=== PATIENT | female | born 1945 | race Caucasian/White ===

== ENCOUNTER 2017-12-14 15:07 | Inpatient (IN) ==
--- NOTE | 2017-12-14 15:32 | Emergency Department Report ---
Medical Clearance HPI - General Chief complaint: Medical Clearance Stated complaint: Gen clearance Time Seen by Provider: 12/14/17 15:31 Source: patient Mode of arrival: ambulatory Limitations: no limitations - History of Present Illness HPI Narrative: Patient is a 72-year-old female dementia with behavioral disturbances. Patient' s been having aggressive towards [facility] staff and acting out. Patient was evaluated and found to be appropriate for generations was sent to the emergency department for evaluation. Patient complains of mild abdominal pain, no nausea no vomiting. MD complaint: medical clearance requested Home medications: Home Medications Medication Instructions Recorded Confirmed Acetaminophen [Pain Relief] 1,000 mg PO TID PRN 12/14/17 12/14/17 Albuterol/Ipratropium [Duoneb] 1 unit AEROSOL Q4H 12/14/17 12/14/17 Albuterol/Ipratropium [Duoneb] 1 unit AEROSOL Q4H PRN 12/14/17 12/14/17 Aspirin [Aspirin EC] 81 mg PO DAILY 12/14/17 12/14/17 Baclofen [Lioresal] 10 mg PO TID 12/14/17 12/14/17 Buspirone [Buspar] 7.5 mg PO TID 12/14/17 12/14/17 Cholecalciferol (Vitamin D3) 1,000 unit PO BID 12/14/17 12/14/17 [Vitamin D3] Duloxetine [Cymbalta] 60 mg PO HS 12/14/17 12/14/17 Fluticasone/Salmeterol 250/50 1 puff INH BID PRN 12/14/17 12/14/17 [Advair 250-50 Diskus] Furosemide [Lasix 40 mg Tab] 40 mg PO DAILY 12/14/17 12/14/17 Ibuprofen 400 mg PO Q5H PRN 12/14/17 12/14/17 Insulin Glargine,Hum.rec.anlog 42 unit SQ AM 12/14/17 12/14/17 [Lantus Solostar] Metformin [Glucophage] 500 mg PO BIDWM 12/14/17 12/14/17 Milk of Magnesia [Mom] 30 ml PO DAILY PRN 12/14/17 12/14/17 Multivitamin [One Daily] 1 each PO DAILY 12/14/17 12/14/17 Ondansetron HCl [Zofran] 4 mg PO Q4H PRN 12/14/17 12/14/17 PEG 3350 17gm PACKET [Miralax] 17 gm PO DAILY PRN 12/14/17 12/14/17 Pravastatin [Pravachol] 20 mg PO HS 12/14/17 12/14/17 Sotalol [Betapace] 40 mg PO BID 12/14/17 12/14/17 Trazodone [Desyrel] 25 mg PO HS 12/14/17 12/14/17 raNITIdine HCl [Ranitidine HCl] 75 mg PO BID 12/14/17 12/14/17 risperiDONE [Risperidone] 0.125 mg PO BID 12/14/17 12/14/17 Allergies/Adverse reactions: Allergies Allergy/AdvReac Type Severity Reaction Status Date / Time codeine Allergy Intermediate Verified 12/14/17 15:16 Review of Systems Constitutional: Denies: fever, chills, weakness Eyes: Denies: eye pain, eye discharge ENT: Denies: ear pain, throat pain, dental pain Cardiovascular: Denies: chest pain, palpitations, dyspnea on exertion Respiratory: Denies: cough, dyspnea, wheezes Gastrointestinal: Reports: abdominal pain. Denies: nausea, vomiting Genitourinary: Denies: dysuria, frequency Musculoskeletal: Denies: back pain Neurological: Denies: headache Psychiatric: Denies: anxiety, depression Endocrine: Denies: fatigue Hematological/Lymphatic: Denies: easy bleeding Allergic/Immunologic: Denies: facial swelling PFSH Patient Stated Medical History Dementia Yes Other HEENT Yes: Disease of esophagus Cardiac Arrhythmia Yes: afib, aflutter Coronary Artery Disease Yes Hypertension Yes Myocardial Infarction Yes Chronic Obstructive Pulmonary Yes Disease (COPD) Pneumonia Yes Diabetes Mellitus Type 2 Yes Osteoarthritis Yes Other Musculoskeletal Yes: cervicalgia Depression Yes Schizophrenia Yes Other Behavioral Health Yes: Dementia with behavioral distrubances - Social History Smoking status: Never smoker Substance use type: does not use Alcohol intake frequency: does not drink Physical Exam - General General appearance: alert, in no apparent distress - Eye Eye exam: Present: PERRL - ENT ENT exam: Present: normal oropharynx, mucous membranes moist, TM's normal bilaterally - Neck Neck exam: Present: full ROM, trachea midline - Chest Chest inspection: Present: symmetric chest wall rise. Absent: tenderness, rash - Respiratory Respiratory exam: Present: normal lung sounds bilaterally. Absent: respiratory distress, wheezes, stridor - Cardiovascular Cardiovascular exam: Present: regular rate, normal rhythm, normal heart sounds - Abdominal Exam Abdominal exam: Present: soft, tenderness (mild diffuse tenderness), normal bowel sounds. Absent: distention - Extremities Exam Extremities exam: Present: full ROM - Back Exam Back exam: Present: full ROM - Skin Skin exam: Present: warm, dry - Neurological Exam Neurological exam: Present: alert, oriented X3 - Psychiatric Psychiatric exam: Present: normal affect, normal mood Course Vital Signs Temperature 98.7 F 12/14/17 15:10 Pulse Rate 102 H 12/14/17 15:10 Respiratory Rate 18 12/14/17 15:10 Blood Pressure 163/104 H 12/14/17 15:10 Pulse Oximetry 86 L 12/14/17 15:10 Temperature 97.2 F 12/14/17 18:33 Pulse Rate 96 12/14/17 18:33 Respiratory Rate 18 12/14/17 18:33 Blood Pressure 163/96 H 12/14/17 18:33 Pulse Oximetry 91 12/14/17 18:33 Medical Clearance - Medical Records Attestation: I reviewed the patient's medical records. - Lab Data Attestation: I reviewed the patient's lab results. Result diagrams: 12/14/17 15:52 12/14/17 15:52 Lab Results 12/14/17 12/14/17 12/14/17 Range/Units 15:52 15:52 15:52 WBC 11.2 H (4.5-11.0) T/MM3 RBC 5.09 (4.00-5.20) M/MM3 Hgb 14.3 (12-16) GM/DL Hct 46.3 H (36-46) % MCV 91.0 (80-100) UM3 MCH 28.1 (26-34) UUG MCHC 30.9 L (31-37) GM/DL RDW Std Deviation 48.3 (36.9-50.2) FL Plt Count 273 (130-400) T/MM3 MPV 10.6 (9.4-12.4) UM3 Immature Gran % (Auto) 0.4 (0.0-0.5) % Neut % (Auto) 61.1 (33-66) % Lymph % (Auto) 27.0 (23-45) % [place]ock % (Auto) 9.0 (0-9.0) % Eos % (Auto) 2.1 (0-4) % Baso % (Auto) 0.4 (0-2) % Neut # (Auto) 6.8 (1.8-7.7) T/MM3 Lymph # (Auto) 3.0 (1-4.8) T/MM3 Gl[place]ock # (Auto) 1.0 H (0-0.8) T/MM3 Eos # (Auto) 0.2 (0-0.5) T/MM3 Baso # (Auto) 0.0 (0-0.2) T/MM3 Abs Immat Gran (auto) 0.05 H (0.00-0.03) T/MM3 Turbidity < 20 (0-20) Sodium 148 H (134-144) MEQ/L Potassium 4.0 (3.6-5) MEQ/L Chloride 98 (98-107) MEQ/L Carbon Dioxide 36 H (22-30) MEQ/L Anion Gap 14 (5-15) meq/L BUN 18.0 H (7-17) MG/DL Creatinine 0.9 (0.7-1.2) mg/dL GFR Calculation 61 BUN/Creatinine Ratio 20 (6-26) RATIO Glucose 152 H (65-110) MG/DL Calculated Osmolality 289 H (261-280) MOSM/KG Calcium 12.1 H (8.4-10.2) MG/DL Total Bilirubin 0.60 (0.20-1.30) MG/DL Icterus Index < 2 (0-7) AST 41 H (14-36) U/L ALT 36 H (1-35) U/L Alkaline Phosphatase 78 (38-126) U/L Total Protein 8.5 H (6.3-8.2) g/dL Albumin 4.8 (3.5-5.0) g/dL Globulin 3.7 H (2.4-3.6) G/DL Albumin/Globulin Ratio 1.3 (1.1-2.2) RATIO TSH 2.77 (0.47-4.68) mIU/L Specimen Hemolysis < 15 (0-25) Ur Collection Type Urine, void-cc/notcc Urine Color Yellow (YELLOW) Urine Clarity Clear Urine pH 5.0 (5.0-8.0) Ur Specific [place] 1.020 (1.015-1.025) Urine Protein 1+ A (NEGATIVE) Urine Glucose (UA) Negative (NEGATIVE) Urine Ketones Negative (NEGATIVE) Urine Occult Blood Trace-lysed (NEGATIVE) Urine Nitrate Negative (NEGATIVE) Urine Bilirubin Negative (NEGATIVE) Urine Urobilinogen 0.2 (NORMAL) EU/DL Ur Leukocyte Esterase Negative (NEGATIVE) Urine RBC None seen (0-3) /HPF Urine WBC 1-3 (0-5) /HPF Ur Squamous Epith Cells 0-5 Amorphous Sediment Few Urine Bacteria None seen (NEGATIVE) Ur Culture Indicated? Cult not indicated - Radiology Data Attestation: I reviewed the patient's radiology results. Chest x-ray: No acute cardiopulmonary findings - EKG Data EKG #1 EKG attestation: Yes: I reviewed and interpreted this EKG. EKG shows normal: sinus rhythm Rate: normal Rhythm: NSR Arcade/QRS: normal Interpretation: no acute changes Disposition Clinical Impression: generations admit Disposition: 64 To [facility] Generations Condition: Stable - Seen By: physician
--- OUTSIDE RECORDS SUMMARY | 2017-12-14 15:36 | External Medical Summary | Summary of Care ---
:1945 Author Name Fawad Parks M.D. Address Unavailable Unavailable , Care Team Providers Name Role Phone Nate Mejia M.D. Unavailable Unavailable Fawad Parks M.D. 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 KDoris Start 06-Nov-2009 Active Pravastatin Sodium 20 MG Oral Tablet TAKE ONE TABLET BY MOUTH EVERY DAY AT BEDTIME Quantity: 30 Refills: 6 Roberto Agosto, T. K. Start 27-Nov-2009 Active Metoprolol Tartrate 25 MG Oral Tablet Take One Tablet By Mouth Twice Daily Quantity: 60 Refills: 6 Roberto Agosto T. KDoris Start 06-Apr-2010 Active Acidophilus Oral Tablet Refills: 0 Fawad Parks M.D. Start 29-Sep-2016 Active Advair Diskus 250-50 MCG/DOSE Inhalation Aerosol Powder Breath Activated Refills: 0 Fawad Parks M.D. Start 29-Sep-2016 Active Baclofen 10 MG Oral Tablet Refills: 0 Fawad Parks M.D. Start 29-Sep-2016 Active BusPIRone HCl - 15 MG Oral Tablet Refills: 0 Epp M.D., [facility] Start 29-Sep-2016 Active Doxycycline Hyclate 100 MG Oral Tablet Refills: 0 Epp M.D., [facility] Start 29-Sep-2016 Active Furosemide 40 MG Oral Tablet Refills: 0 Epp M.D., [facility] Start 29-Sep-2016 Active Ipratropium-Albuterol 0.5-2.5 (3) MG/3ML Inhalation Solution Refills: 0 Epp M.D., [facility] Start 29-Sep-2016 Active Escitalopram Oxalate 20 MG Oral Tablet Refills: 0 Epp M.D., [facility] Start 29-Sep-2016 Active MetFORMIN HCl - 500 MG Oral Tablet Refills: 0 Epp M.D., [facility] Start 29-Sep-2016 Active Milk of Magnesia 400 MG/5ML Oral Suspension Refills: 0 Epp M.D., [facility] Start 29-Sep-2016 Active Mirtazapine 15 MG Oral Tablet Refills: 0 Epp M.D., [facility] Start 29-Sep-2016 Active Omeprazole 20 MG Oral Capsule Delayed Release Refills: 0 Epp M.D., [facility] Start 29-Sep-2016 Active Polyethylene Glycol Powder Refills: 0 Epp M.D., [facility] Start 29-Sep-2016 Active Pradaxa 150 MG Oral Capsule Refills: 0 Epp M.D., [facility] Start 29-Sep-2016 Active Tobramycin-Dexamethasone 0.3-0.1 % Ophthalmic Suspension Refills: 0 Epp M.D., [facility] Start 29-Sep-2016 Active Allergies and Adverse Reactions Name Dates Details Codeine Derivatives (Allergy) Status: Active Plavix TABS (Allergy) Reaction: Itching, Rash Status: Active Past Medical History Name Dates Details History of Acute myocardial infarction (410.90, I21.3) Status: Resolved History of Acute Myocardial Infarction (V12.59) Status: Resolved History of Pre-operative cardiovascular examination (V72.81, Z01.810) Status : Resolved Procedures Procedure Dates Details History of Cath Stent Placement History of Cath Stent Placement Completed: 16-Oct-2009 History of Heart Catheterization - Left Completed: 16-Oct-2009 History of Percutaneous Transluminal Coronary Completed: 16-Oct-2009 Thrombectomy Procedures not documented Immunization Name Dates Details Pneumo (Pneumovax) on: 2009 Influenza on: 2009 Family History Unknown Family Member Name Dates Details Family history of Diabetes Mellitus (V18.0) Comments: Family History Status: Active Family history of Lung Cancer (V16.1) Comments: Family History Status: Active Family history of Family History Reviewed Comments: Family History Status: Active Social History Smoking Status Name Dates Details Unknown if ever smoked Vital Signs Date Test Result Details 04-Oct-2016 15:32 Heart Rate 71 /min Status: Comments: Location: ; Weight 165 lb Status: Physical Findings 96 Status: Comments: O2 Saturation Body Mass Index Calculated 28.77 kg/m2 Status: Body Surface Area Calculated 1.79 m2 Status: 29-Sep-2016 16:02 BP Systolic 136 mm[Hg] Status: BP Diastolic 64 mm[Hg] Status: Heart Rate 84 /min Status: Comments: Location: ; Physical Findings 20 Status: Comments: Respiration Weight 165 lb Status: Body Mass Index Calculated 28.77 kg/m2 Status: Body Surface Area Calculated 1.79 m2 Status: Results Date Description Value Details Results not documented Plan of Care Name Dates Details Planned Observations Planned Goals not documented Instructions Name Dates Details Instructions not documented Encounters Appointment; Nate Mejia M.D. On 14-Nov-2015 Encounter Diagnosis: Problem not documented 13:30 Appointment; Nate Mejia M.D. On 23-Sep-2015 Encounter Diagnosis: Problem not documented 10:45 Appointment; Nate Mejia M.D. On 09-Sep-2015 Encounter Diagnosis: Problem not documented 10:45 Appointment; Nate Mejia M.D. On 11-Jul-2015 Encounter Diagnosis: Problem not documented 13:30
--- OUTSIDE RECORDS SUMMARY | 2017-12-14 15:36 | External Medical Summary | Summary of Care ---
[...] MG Oral Tablet Refills: 0 Epp M.D., [facility] Start 29-Sep-2016 Active Doxycycline Hyclate 100 MG Oral Tablet Refills: 0 Epp M.D., [facility] Start 29-Sep-2016 Active Furosemide 40 MG Oral Tablet Refills: 0 Epp M.D., [facility] Start 29-Sep-2016 Active Ipratropium-Albuterol 0.5-2.5 (3) MG/3ML Inhalation Solution Refills: 0 Epp M.D., [facility] Start 29-Sep-2016 Active Escitalopram Oxalate 20 MG Oral Tablet Refills: 0 Epp M.D., [facility] Start 29-Sep-2016 Active MetFORMIN HCl - 500 MG Oral Tablet Refills: 0 Epp M.D., [facility] Start 29-Sep-2016 Active Milk of Magnesia 400 MG/5ML Oral Suspension Refills: 0 Epp M.D., [facility] Start 29-Sep-2016 Active Mirtazapine 15 MG Oral Tablet Refills: 0 Epp M.D., [facility] Start 29-Sep-2016 Active Omeprazole 20 MG Oral Capsule Delayed Release Refills: 0 Epp M.D., [facility] Start 29-Sep-2016 Active Polyethylene Glycol Powder Refills: 0 Epp M.D., [facility] Start 29-Sep-2016 Active Pradaxa 150 MG Oral Capsule Refills: 0 Epp M.D., [facility] Start 29-Sep-2016 Active Tobramycin-Dexamethasone 0.3-0.1 % Ophthalmic Suspension Refills: 0 Epp M.D., [facility] Start 29-Sep-2016 Active Allergies and [...] Dates Details Instructions not documented Encounters Appointment; Matthew Hansen M.A.|[facility]ron[facility]orisCNerissa On 29-Sep-2016 Encounter Diagnosis: Problem not documented 21:00 Appointment; Fawad Parks M.D. On 29-Sep-2016 Encounter Diagnosis: Problem not documented 15:45 Appointment; Nate Mejia M.D. On 14-Nov-2015 Encounter Diagnosis: Problem not documented 13:30 Appointment; Nate Mejia M.D. On 23-Sep-2015 Encounter Diagnosis: Problem not documented 10:45 Appointment; Nate Mejia M.D. On 09-Sep-2015 Encounter Diagnosis: Problem not documented 10:45 Appointment; Nate Mejia M.D. On 11-Jul-2015 Encounter Diagnosis: Problem not documented 13:30"
--- OUTSIDE RECORDS SUMMARY | 2017-12-14 15:36 | External Medical Summary | Summary of Care ---
:1945 Author Name Nate Mejia M.D. Address [address] [facility] Unavailable [place], [place] [id number] Care Team Providers Name Role Phone Nate Mejia M.D. Unavailable Unavailable Letty Mohr Primary Care Provider Unavailable Kobe Camacho Referring Provider Unavailable Unavailable Unavailable Unavailable Functional Status Functional Status Health Issues Name Dates Details Functional status health issues are not documented Status: Cognitive Status Health Issues Name Dates Details Cognitive status health issues are not documented Status: Problems Name Dates Details Myalgia and myositis (729.1, M79.1) Status: Active CAD S/P percutaneous coronary angioplasty (414.01, I25.10) Status: Active Dyslipidemia (272.4, E78.5) Status: Active Hypertension (401.9, I10) Status: Active Medications Name Dates Details Aspirin EC 81 MG Oral Tablet Delayed Release take 2 tabs every day Refills: 0 Nate Mejia M.D. Started 06-Nov-2009 ActivePravastatin Sodium 20 MG Oral Tablet TAKE ONE TABLET BY MOUTH EVERY DAY AT BEDTIME Quantity: 30 Refills: 6 Nate Mejia M.D. Started 27-Nov-2009 ActiveMetoprolol Tartrate 25 MG Oral Tablet Take One Tablet By Mouth Twice Daily Quantity: 60 Refills: 6 Nate Mejia M.D. Started 06-Apr-2010 Active Allergies and Adverse Reactions Name Dates Details Codeine Derivatives Status: Active Plavix TABS Reaction: Itching, Rash Status: Active Past Medical History Name Dates Details History of Acute myocardial infarction (410.90, I21.3) Status: Resolved History of Acute Myocardial Infarction (V12.59) Status: Resolved History of Pre-operative cardiovascular examination (V72.81, Z01.810) Status : Resolved Procedures Procedure Dates Details History of Cath Stent Placement History of Cath Stent Placement Completed:16-Oct-2009 History of Heart Catheterization - Left Completed:16-Oct-2009 History of Percutaneous Transluminal Completed:16-Oct-2009 Coronary Thrombectomy ECG/ EKG ([facility]) [place]15-Oct-2015 Immunization Name Dates Details Pneumo (Pneumovax) Administered on:2009 Influenza Administered on:2009 Family History Unknown Family Member Name Dates Details Family history of Diabetes Mellitus (V18.0) Comments: Family History Status: Active Family history of Lung Cancer (V16.1) Comments: Family History Status: Active Family history of Family History Reviewed Comments: Family History Status: Active Social History Smoking StatusUnknown if ever smoked Vital Signs Date Test Result Details No Known Vitals to report Results Date Description Value Details Results not documented Plan of Care Planned Observations Name Dates Details Planned Goals not documented Goal Planned Encounters Appointment; Provider: Nate Mejia On 14-Nov-2015 13:30 Appointment; Provider: Luis Gallegos On 28-Jul-2010 08:45 Appointment; Provider: Luis Gallegos On 29-Jun-2010 10:00 Instructions Instructions not documented Encounters Appointment; Nate Mejia On 23-Sep-2015 Encounter Diagnosis: Problem not documented 10:45 Appointment; Nate Mejia On 09-Sep-2015 Encounter Diagnosis: Problem not documented 10:45 Appointment; Nate Mejia On 11-Jul-2015 Encounter Diagnosis: Problem not documented 13:30 Appointment; Nate Mejia On 21-May-2014 Encounter Diagnosis: Problem not documented 13:30
--- OUTSIDE RECORDS SUMMARY | 2017-12-14 15:36 | External Medical Summary | Summary of Care ---
:1945 Author Name Pradeep Hansen M.A., James A Address [address] [facility] Unavailable [place], [place] [id number] Care Team Providers Name Role Phone Nate Mejia M.D. Unavailable Unavailable Fawad Parks M.D. Unavailable Unavailable Pradeep Hansen M.A., Matthew Nguyễn Unavailable Unavailable Letty Mohr Unavailable Unavailable Kobe [...] Active Hypertension (401.9, I10) Status: Active Mixed hearing loss, bilateral (389.22, H90.6) Status: Active Medications Name Dates Details Aspirin EC 81 MG Oral Tablet Delayed Release take 2 tabs every day Refills: 0 Roberto Agosto T. KDoris Start 06-Nov-2009 Active Pravastatin Sodium 20 MG Oral Tablet TAKE ONE TABLET BY MOUTH EVERY DAY AT BEDTIME Quantity: 30 Refills: 6 Roberto Agosto T. KDoris Start 27-Nov-2009 Active Metoprolol Tartrate 25 MG [...] MG Oral Tablet Refills: 0 Epp M.D., Fawad Gopi Start 29-Sep-2016 Active Doxycycline Hyclate 100 MG Oral Tablet Refills: 0 Epp M.D., [facility] Start 29-Sep-2016 Active Furosemide 40 MG Oral Tablet Refills: 0 Epp M.D., [facility] Start 29-Sep-2016 Active Ipratropium-Albuterol 0.5-2.5 (3) MG/3ML Inhalation Solution Refills: 0 Epp M.D., [facility] Start 29-Sep-2016 Active Escitalopram Oxalate 20 MG Oral Tablet Refills: 0 Epp M.D., [facility] Start 29-Sep-2016 Active MetFORMIN HCl - 500 MG Oral Tablet Refills: 0 Epp M.D., Fawad Gopi Start 29-Sep-2016 Active Milk of Magnesia 400 MG/5ML Oral Suspension Refills: 0 Epp M.D., Fawad Nguyễn Start 29-Sep-2016 Active Mirtazapine 15 MG Oral Tablet Refills: 0 Epp M.D., Fawad Gopi Start 29-Sep-2016 Active Omeprazole 20 MG Oral Capsule Delayed Release Refills: 0 Epp M.D., Fawad Gopi Start 29-Sep-2016 Active Polyethylene Glycol Powder Refills: 0 Epp M.D., [facility] Start 29-Sep-2016 Active Pradaxa 150 MG Oral Capsule Refills: 0 Epp M.D., [facility] Start 29-Sep-2016 Active Tobramycin-Dexamethasone 0.3-0.1 % Ophthalmic Suspension Refills: 0 Epp M.D., [facility] Start 29-Sep-2016 Active Allergies and Adverse Reactions [...] smoked Vital Signs Date Test Result Details 29-Sep-2016 16:02 BP Systolic 136 mm[Hg] Status: Comments: Location: ; Position: BP Diastolic 64 mm[Hg] Status: Comments: Location: ; Position: Heart Rate 84 /min Status: Comments: Location: ; Physical Findings 20 Status: Comments: Respiration Weight 165 lb Status: Body Mass Index Calculated 28.77 kg/m2 Status: Body Surface Area Calculated 1.79 m2 Status: Results Date Description Value Details Results not documented Plan of Care Name Dates Details Planned Observations Planned Goals not documented Planned Encounters Appointment; Provider: Fawad Parks M.D. On 04-Oct-2016 15:15 Instructions Name Dates Details Instructions not documented Encounters Appointment; Fawad Parks M.D. On 29-Sep-2016 Encounter [...]
--- OUTSIDE RECORDS SUMMARY | 2017-12-14 15:36 | External Medical Summary | Summary of Care ---
[...] of both ears (389.22, H90.6) Status: Active Medications Name Dates Details Aspirin EC 81 MG Oral Tablet Delayed Release take 2 tabs every day Refills: 0 Roberto Agosto T. Jennifer Start 06-Nov-2009 Active Pravastatin Sodium 20 MG Oral Tablet TAKE ONE TABLET BY MOUTH EVERY DAY AT BEDTIME Quantity: 30 Refills: 6 Roberto Agosto T. KDoris Start 27-Nov-2009 Active Metoprolol Tartrate 25 MG Oral Tablet Take One Tablet By Mouth Twice Daily Quantity: 60 Refills: 6 Roberto Agosto T. Jennifer Start 06-Apr-2010 Active Acidophilus Oral Tablet Refills: 0 Kasey MFawad Rubin Start 29-Sep-2016 Active Advair Diskus 250-50 MCG/DOSE Inhalation Aerosol Powder Breath Activated Refills: 0 Fawad Parks M.D. Start 29-Sep-2016 Active Baclofen 10 MG Oral Tablet Refills: 0 Kasey M.Fawad Hannah Start 29-Sep-2016 Active BusPIRone HCl - 15 MG Oral Tablet Refills: 0 Kasey MFawad Rubin Start 29-Sep-2016 Active Doxycycline Hyclate 100 MG Oral Tablet Refills: 0 Epp M.DDoris, Fawad Gopi Start 29-Sep-2016 Active Furosemide 40 MG Oral Tablet Refills: 0 Epp M.D., Fawad Gopi Start 29-Sep-2016 Active Ipratropium-Albuterol 0.5-2.5 (3) MG/3ML Inhalation Solution Refills: 0 Epp M.D., Fawad Gopi Start 29-Sep-2016 Active Escitalopram Oxalate 20 MG Oral Tablet Refills: 0 Epp M.D., Fawad Gopi Start 29-Sep-2016 Active MetFORMIN HCl - 500 MG Oral Tablet Refills: 0 Epp M.D., [facility] Start 29-Sep-2016 Active Milk of Magnesia 400 MG/5ML Oral Suspension Refills: 0 Epp M.D., Fawad Nguyễn Start 29-Sep-2016 Active Mirtazapine 15 MG Oral Tablet Refills: 0 Epp M.D., [facility] Start 29-Sep-2016 Active Omeprazole 20 MG Oral Capsule Delayed Release Refills: 0 Epp M.D., [facility] Start 29-Sep-2016 Active Polyethylene Glycol Powder Refills: 0 Epp M.D., [facility] Start 29-Sep-2016 Active Pradaxa 150 MG Oral Capsule Refills: 0 Epp M.D., [facility] Start 29-Sep-2016 Active Tobramycin-Dexamethasone 0.3-0.1 % Ophthalmic Suspension Refills: 0 Epp M.D., [facility] Start 29-Sep-2016 Active Allergies and Adverse [...]
--- OUTSIDE RECORDS SUMMARY | 2017-12-14 15:37 | External Medical Summary | Summary of Care ---
[...] MG Oral Tablet Refills: 0 Epp M.D., [facility] Start 29-Sep-2016 Active Milk of Magnesia 400 MG/5ML Oral Suspension Refills: 0 Epp M.D., [facility] Start 29-Sep-2016 Active Mirtazapine 15 MG Oral Tablet Refills: 0 Epp M.D., [facility] Start 29-Sep-2016 Active Omeprazole 20 MG Oral Capsule Delayed Release Refills: 0 Epp M.D., [facility] Start 29-Sep-2016 Active Polyethylene Glycol Powder Refills: 0 Epp M.D., [facility] Start 29-Sep-2016 Active Pradaxa 150 MG Oral Capsule Refills: 0 Epp M.D., [facility] Start 29-Sep-2016 Active Tobramycin-Dexamethasone 0.3-0.1 % Ophthalmic Suspension Refills: 0 Epp M.D., [facility] Start 29-Sep-2016 Active Allergies and Adverse [...] Instructions not documented Encounters Appointment; Matthew Hansen M.A.|Pradeep On 29-Sep-2016 Encounter Diagnosis: Problem not documented [...]
--- OUTSIDE RECORDS SUMMARY | 2017-12-14 15:37 | External Medical Summary | CCD ---
:1945 Author Name DEBORA DANIELSON Address [address] Unavailable [place], [place] [id number] Care Team Providers Name Role Phone CONCEPCIÓN OSCAR Attending Physician Unavailable SEVERIANO SUAREZ Er Physician 1 Unavailable H.CELESTE Registered Nurse Unavailable B., KATHLEEN Archuleta Nursing Staff Unavailable W., [employer] Unavailable B., DOMONIQUE Nunez Nursing Staff Unavailable W., DEE Wheeler Registered Nurse Unavailable B., KAMILA Saldana Registered Nurse Unavailable K., KEY Wheeler Registered Nurse Unavailable J., ALFRED [facility] Unavailable M., ARELY Saldana Licensed Practical Nurse Unavailable S., JONATHAN Nunez Case Management/Cash Accountant Unavailable W., KATE Soto Nursing Staff Unavailable P., Samra RIVERS Registered Nurse Unavailable Vital Signs Vital Sign Value Unit Date/Time Recent/Initial? Weight Measured 128.8 lbs 11/05/2015 00:14 Initial VS Height 60.5 in 11/05/2015 00:14 Initial VS BMI (Body Mass Index) 24.74 kg/m^2 11/05/2015 00:14 Initial VS BSA (Body Surface 1.58 m^2 11/05/2015 00:14 Initial VS Area) BP Systolic 134 mmHg 11/05/2015 00:14 Initial VS BP Diastolic 75 mmHg 11/05/2015 00:14 Initial VS Respiratory Rate 18 bpm 11/05/2015 00:14 Initial VS Heart Rate 89 bpm 11/05/2015 00:14 Initial VS O2 % BldC Oximetry 90 % 11/05/2015 00:14 Initial VS Body Temperature 98.1 degrees 11/05/2015 00:14 Initial VS Weight Measured 141 lbs 11/08/2015 04:47 Most Recent VS Height 60.5 in 11/08/2015 04:47 Most Recent VS BMI (Body Mass Index) 27.08 kg/m^2 11/08/2015 04:47 Most Recent VS BSA (Body Surface 1.65 m^2 11/08/2015 04:47 Most Recent VS Area) BP Systolic 117 mmHg 11/08/2015 09:55 Most Recent VS BP Diastolic 87 mmHg 11/08/2015 09:55 Most Recent VS Respiratory Rate 20 bpm 11/08/2015 09:55 Most Recent VS Heart Rate 74 bpm 11/08/2015 09:55 Most Recent VS O2 % BldC Oximetry 92 % 11/08/2015 09:55 Most Recent VS Body Temperature 98.4 degrees 11/08/2015 09:55 Most Recent VS Allergies Allergy Code Allergy Type Reaction Status CODEINE 2670 Drug allergy Active Procedures Procedure Code Procedure Type Date PT - EVAL AND TREAT 46403572 SNOMED CT 11/06/2015 XR CHEST PA LATERAL 15701510 SNOMED CT 11/04/2015 CBC WITH DIFFERENTIAL 1926663 SNOMED CT 11/04/2015 History of Immunizations Immunization Code Date Tdap 115 11/08/2015 Pneumococcal conjugate PCV 13 133 11/08/2015 Problems Problem Code Start Date Resolved Date Status SOB 548558339 11/07/2013 Active Pneumonia, organism 624766775 11/07/2013 Active unspecified Coronary atherosclerosis 863611611 11/07/2013 Active of unspecified type of vessel, [place] or graft Unspecified essential 99171248 Active hypertension Results CHEM 14 COMPREHENSIVE METABOLIC PANEL - Collect Date/Time: 11/04/2015 21:31 Test Name Code Test Result Test Units Test Ref Range GLUCOSE 2345-7 110 mg/dl L=65 H=110 BUN 3094-0 13 mg/dl L=7 H=18 CREATININE 2160-0 0.6 mg/dl L=0.7 H=1.2 BUN/CREAT 21.67 RATIO SODIUM 2951-2 142 mmol/L L=137 H=145 POTASSIUM 2823-3 4.2 mmol/L L=3.4 H=5.3 CHLORIDE 2075-0 106 mmol/L L=98 H=107 CO2 2028-9 26.0 mmol/L L=22.0 H=30.0 AST/SGOT 18 U/L L=5 H=40 ALK PHOS 92 IU/L L=32 H=91 T BILIRUBIN 0.90 mg/dl L=0.20 H=1.30 TOTAL PROTEIN 7.20 g/dl L=5.49 H=7.83 ALBUMIN 1751-7 4.0 g/dl L=3.3 H=5.0 CALCIUM 22946-0 10.4 mg/dl L=8.4 H=10.3 ALT/SGPT 14 U/L L=9 H=71 AGE 70.00 yrs GFR NonAA 105 GFR AA 127 CK - Collect Date/Time: 11/04/2015 21:31 Test Name Code Test Result Test Units Test Ref Range CK 56 U/L L=30 H=135 CK-MB - Collect Date/Time: 11/04/2015 21:31 Test Name Code Test Result Test Units Test Ref Range CKMB 1.9 NG/ML L=0.6 H=6.3 DAILY CHEM 14 - Collect Date/Time: 11/08/2015 06:35 Test Name Code Test Result Test Units Test Ref Range GLUCOSE 2345-7 153 mg/dl L=65 H=110 BUN 3094-0 25 mg/dl L=7 H=18 CREATININE 2160-0 0.7 mg/dl L=0.7 H=1.2 BUN/CREAT 37.31 RATIO SODIUM 2951-2 137 mmol/L L=137 H=145 POTASSIUM 2823-3 4.3 mmol/L L=3.4 H=5.3 CHLORIDE 2075-0 100 mmol/L L=98 H=107 CO2 2028-9 29.0 mmol/L L=22.0 H=30.0 SGOT 42 U/L L=5 H=40 ALK PHOS 64 IU/L L=32 H=91 T BILIRUBIN 0.80 mg/dl L=0.20 H=1.30 TOTAL PROTEIN 5.80 g/dl L=5.49 H=7.83 ALBUMIN 1751-7 3.1 g/dl L=3.3 H=5.0 CALCIUM 03635-0 9.9 mg/dl L=8.4 H=10.3 GPT 84 U/L L=9 H=72 AGE 70 yrs GFR NonAA 88 GFR AA 106 DAILY CHEM 14 - Collect Date/Time: 11/07/2015 05:00 Test Name Code Test Result Test Units Test Ref Range GLUCOSE 2345-7 215 mg/dl L=65 H=110 BUN 3094-0 23 mg/dl L=7 H=18 CREATININE 2160-0 0.7 mg/dl L=0.7 H=1.2 BUN/CREAT 32.39 RATIO SODIUM 2951-2 135 mmol/L L=137 H=145 POTASSIUM 2823-3 4.3 mmol/L L=3.4 H=5.3 CHLORIDE 2075-0 103 mmol/L L=98 H=107 CO2 2028-9 27.0 mmol/L L=22.0 H=30.0 SGOT 85 U/L L=5 H=40 ALK PHOS 77 IU/L L=32 H=91 T BILIRUBIN 0.50 mg/dl L=0.20 H=1.30 TOTAL PROTEIN 5.80 g/dl L=5.49 H=7.83 ALBUMIN 1751-7 3.1 g/dl L=3.3 H=5.0 CALCIUM 47170-7 9.8 mg/dl L=8.4 H=10.3 GPT 84 U/L L=9 H=72 AGE 70 yrs GFR NonAA 88 GFR AA 106 DAILY CHEM 14 - Collect Date/Time: 11/06/2015 05:43 Test Name Code Test Result Test Units Test Ref Range GLUCOSE 2345-7 254 mg/dl L=65 H=110 BUN 3094-0 19 mg/dl L=7 H=18 CREATININE 2160-0 0.6 mg/dl L=0.7 H=1.2 BUN/CREAT 29.69 RATIO SODIUM 2951-2 137 mmol/L L=137 H=145 POTASSIUM 2823-3 4.5 mmol/L L=3.4 H=5.3 CHLORIDE 2075-0 105 mmol/L L=98 H=107 CO2 2028-9 24.0 mmol/L L=22.0 H=30.0 SGOT 25 U/L L=5 H=40 ALK PHOS 79 IU/L L=32 H=91 T BILIRUBIN 0.50 mg/dl L=0.20 H=1.30 TOTAL PROTEIN 6.20 g/dl L=5.49 H=7.83 ALBUMIN 1751-7 3.3 g/dl L=3.3 H=5.0 CALCIUM 60665-8 10.4 mg/dl L=8.4 H=10.3 GPT 18 U/L L=9 H=72 AGE 70 yrs GFR NonAA 105 GFR AA 127 DAILY MAGNESIUM - Collect Date/Time: 11/08/2015 06:35 Test Name Code Test Result Test Units Test Ref Range MAGNESIUM 2.1 MG/DL L=1.6 H=2.3 DAILY MAGNESIUM - Collect Date/Time: 11/07/2015 05:00 Test Name Code Test Result Test Units Test Ref Range MAGNESIUM 2.2 MG/DL L=1.6 H=2.3 FastTSH - Collect Date/Time: 11/04/2015 21:31 Test Name Code Test Result Test Units Test Ref Range FastTSH 2.68 uIU/ml L=0.34 H=5.60 GLYCOHEMOGLOBIN - Collect Date/Time: 11/06/2015 05:43 Test Name Code Test Result Test Units Test Ref Range HGB A1C 6.8 % L=0.0 H=8.0 MEAN GLUCOSE 140 mg/dl L=65 H=110 LIPID PROFILE - Collect Date/Time: 11/08/2015 05:35 Test Name Code Test Result Test Units Test Ref Range CHOLESTEROL 163 mg/dl L=0 H=200 TRIGLYCERIDES 237 mg/dl L=35 H=160 dHDL 41 mg/dl L=35 H=100 LDL 2089-1 75 mg/dl L=1 H=130 VLDL 47 MG/DL L=1 H=35 CHOL/HDL 4.0 RATIO L=2.5 H=4.2 MAGNESIUM - Collect Date/Time: 11/06/2015 05:43 Test Name Code Test Result Test Units Test Ref Range MAGNESIUM 1.8 MG/DL L=1.6 H=2.3 TROPONIN - Collect Date/Time: 11/04/2015 21:31 Test Name Code Test Result Test Units Test Ref Range TROPONIN-I 0.000 ng/ml L=0.000 H=0.050 CBC WITH DIFFERENTIAL - Collect Date/Time: 11/04/2015 21:31 Test Name Code Test Result Test Units Test Ref Range WBC 47365-2 9.0 th/ul L=4.3 H=11.0 NEUTROPHILS 770-8 67.3 % L=50.0 H=76.0 LYMPHOCYTES 736-9 22.8 % L=20.0 H=40.0 MONOCYTES 5905-5 7.3 % L=2.0 H=12.0 EOSINOPHILS 713-8 1.7 % L=1.0 H=3.0 BASOPHILS 706-2 0.9 % L=0.0 H=1.0 RBC 789-8 5.99 mil/ul L=4.20 H=5.40 HEMOGLOBIN 718-7 17.0 g/dl L=12.0 H=16.0 HEMATOCRIT 4544-3 51.3 % L=38.0 H=47.0 MCV 787-2 86 fL L=82 H=100 MCH 785-6 28.4 pg L=26.0 H=33.0 MCHC 786-4 33.2 g/dl L=31.0 H=36.0 RDW 788-0 14.3 % L=11.5 H=14.5 NEUTROPHILS 751-8 6.1 th/ul L=1.4 H=6.5 LYMPHOCYTES 731-0 2.1 th/ul L=1.0 H=4.0 MONOCYTES 742-7 0.7 th/ul L=0.0 H=0.7 EOSINOPHILS 711-2 0.2 th/ul L=0.0 H=0.7 BASOPHILS 704-7 0.1 th/ul L=0.0 H=0.[address] 777-3 142 th/ul L=150 H=375 DAILY CBC WITH DIFF - Collect Date/Time: 11/08/2015 06:35 Test Name Code Test Result Test Units Test Ref Range WBC 14918-6 12.8 th/ul L=4.3 H=11.0 NEUTROPHILS 770-8 91.3 % L=50.0 H=76.0 LYMPHOCYTES 736-9 6.0 % L=20.0 H=40.0 MONOCYTES 5905-5 2.5 % L=2.0 H=12.0 EOSINOPHILS 713-8 0.0 % L=1.0 H=3.0 BASOPHILS 706-2 0.2 % L=0.0 H=1.0 RBC 789-8 5.43 mil/ul L=4.20 H=5.40 HEMOGLOBIN 718-7 15.3 g/dl L=12.0 H=16.0 HEMATOCRIT 4544-3 46.2 % L=38.0 H=47.0 MCV 787-2 85 fL L=82 H=100 MCH 785-6 28.2 pg L=26.0 H=33.0 MCHC 786-4 33.1 g/dl L=31.0 H=36.0 RDW 788-0 14.6 % L=11.5 H=14.5 NEUTROPHILS 751-8 11.7 th/ul L=1.4 H=6.5 LYMPHOCYTES 731-0 0.8 th/ul L=1.0 H=4.0 MONOCYTES 742-7 0.3 th/ul L=0.0 H=0.7 EOSINOPHILS 711-2 0.0 th/ul L=0.0 H=0.7 BASOPHILS 704-7 0.0 th/ul L=0.0 H=0.[address] 777-3 132 th/ul L=150 H=375 BANDS MANUAL 0 % L=2 H=6 NEUT MANUAL 86 % L=50 H=70 LYMS MANUAL 10 % L=20 H=40 MONOS MANUAL 4 % L=2 H=12 EOS MANUAL 0 % L=1 H=3 BASO MANUAL 0 % L=0 H=1 METAS MANUAL 0 % MYELOS MANUAL 0 % BLASTS MANUAL 0 % ATYP LYMPHS 0 % PROLYMPH MANUAL 0 L=0 H=0 TOTAL DIFF CELLS 100 L=100 H=100 PLATELET EST DECREASED N/A RBC MORPH NORMAL N/A DAILY CBC WITH DIFF - Collect Date/Time: 11/07/2015 05:00 Test Name Code Test Result Test Units Test Ref Range WBC 80253-9 17.3 th/ul L=4.3 H=11.0 NEUTROPHILS 770-8 93.0 % L=50.0 H=76.0 LYMPHOCYTES 736-9 3.9 % L=20.0 H=40.0 MONOCYTES 5905-5 3.0 % L=2.0 H=12.0 EOSINOPHILS 713-8 0.0 % L=1.0 H=3.0 BASOPHILS 706-2 0.1 % L=0.0 H=1.0 RBC 789-8 5.46 mil/ul L=4.20 H=5.40 HEMOGLOBIN 718-7 15.2 g/dl L=12.0 H=16.0 HEMATOCRIT 4544-3 47.0 % L=38.0 H=47.0 MCV 787-2 86 fL L=82 H=100 MCH 785-6 27.9 pg L=26.0 H=33.0 MCHC 786-4 32.4 g/dl L=31.0 H=36.0 RDW 788-0 14.5 % L=11.5 H=14.5 NEUTROPHILS 751-8 16.1 th/ul L=1.4 H=6.5 LYMPHOCYTES 731-0 0.7 th/ul L=1.0 H=4.0 MONOCYTES 742-7 0.5 th/ul L=0.0 H=0.7 EOSINOPHILS 711-2 0.0 th/ul L=0.0 H=0.7 BASOPHILS 704-7 0.0 th/ul L=0.0 H=0.[address] 777-3 137 th/ul L=150 H=375 BANDS MANUAL 0 % L=2 H=6 NEUT MANUAL 92 % L=50 H=70 LYMS MANUAL 6 % L=20 H=40 MONOS MANUAL 2 % L=2 H=12 EOS MANUAL 0 % L=1 H=3 BASO MANUAL 0 % L=0 H=1 METAS MANUAL 0 % MYELOS MANUAL 0 % BLASTS MANUAL 0 % ATYP LYMPHS 0 % PROLYMPH MANUAL 0 L=0 H=0 TOTAL DIFF CELLS 100 L=100 H=100 PLATELET EST DECREASED N/A RBC MORPH NORMAL N/A DAILY CBC WITH DIFF - Collect Date/Time: 11/06/2015 05:43 Test Name Code Test Result Test Units Test Ref Range WBC 41391-1 20.9 th/ul L=4.3 H=11.0 NEUTROPHILS 770-8 92.1 % L=50.0 H=76.0 LYMPHOCYTES 736-9 3.9 % L=20.0 H=40.0 MONOCYTES 5905-5 3.7 % L=2.0 H=12.0 EOSINOPHILS 713-8 0.0 % L=1.0 H=3.0 BASOPHILS 706-2 0.3 % L=0.0 H=1.0 RBC 789-8 5.23 mil/ul L=4.20 H=5.40 HEMOGLOBIN 718-7 14.6 g/dl L=12.0 H=16.0 HEMATOCRIT 4544-3 44.9 % L=38.0 H=47.0 MCV 787-2 86 fL L=82 H=100 MCH 785-6 27.9 pg L=26.0 H=33.0 MCHC 786-4 32.6 g/dl L=31.0 H=36.0 RDW 788-0 14.6 % L=11.5 H=14.5 NEUTROPHILS 751-8 19.3 th/ul L=1.4 H=6.5 LYMPHOCYTES 731-0 0.8 th/ul L=1.0 H=4.0 MONOCYTES 742-7 0.8 th/ul L=0.0 H=0.7 EOSINOPHILS 711-2 0.0 th/ul L=0.0 H=0.7 BASOPHILS 704-7 0.1 th/ul L=0.0 H=0.[address] 777-3 138 th/ul L=150 H=375 BANDS MANUAL 0 % L=2 H=6 NEUT MANUAL 94 % L=50 H=70 LYMS MANUAL 3 % L=20 H=40 MONOS MANUAL 3 % L=2 H=12 EOS MANUAL 0 % L=1 H=3 BASO MANUAL 0 % L=0 H=1 METAS MANUAL 0 % MYELOS MANUAL 0 % BLASTS MANUAL 0 % ATYP LYMPHS 0 % PROLYMPH MANUAL 0 L=0 H=0 TOTAL DIFF CELLS 100 L=100 H=100 PLATELET EST DECREASED N/A RBC MORPH NORMAL N/A D-DIMER - Collect Date/Time: 11/04/2015 21:31 Test Name Code Test Result Test Units Test Ref Range D-DIMER 72341-5 0.61 ug/ml FEU URINALYSIS - Collect Date/Time: 11/04/2015 21:30 Test Name Code Test Result Test Units Test Ref Range Color YELLOW N/A Character CLEAR N/A Glucose NEGATIVE N/A Bilirubin NEGATIVE N/A Ketones NEGATIVE N/A Sp [place] 1.025 N/A Ph 7.0 N/A Protein 2+ N/A Urobilinogen 0.2 N/A Nitrite NEGATIVE N/A Blood TRACE-LYSED N/A Leukocytes TRACE N/A Microscopic See Below N/A Urine Volume 12 ml N/A Specimen Type SPUN N/A Bacteria 1+ (10-50) N/A WBC/ 2-5 N/A RBC/ 2-5 N/A Squa Epi Cell 2-5 N/A Culture Not indicat N/A BLOOD GASES - ADULT - Collect Date/Time: 11/04/2015 21:35 Test Name Code Test Result Test Units Test Ref Range PH 7.43 L=7.37 H=7.47 PCO2 39.7 mmHg L=32.0 H=46.0 BE 1.40 L=-2.00 H=2.00 BEecf 1.40 L=-2.00 H=2.00 BB 49.9 mmol/L L=46.0 H=54.0 HCO3 25.7 mmol/L L=21.0 H=29.0 PO2 58 mmHg L=74 H=108 O2sat 90.4 % L=91.0 H=96.0 SITE LT RADIAL N/A FiO2 ROOM AIR N/A Active Medications Medication Code Dose Units Frequency Route Modification Start Date/Time predniSONE 369960 60 MILLIGRAMS DAILY CM PO 11/08/2015 20MG Oral 09:59 Tablet Prescription Detail 60 MILLIGRAMS PO DAILY CM Cefdinir 300MG 969779 300 MILLIGRAMS TWO TIMES PO 11/08/2015 Oral Capsule PER DAY 09:58 Prescription Detail 300 MILLIGRAMS PO TWO TIMES PER DAY Furosemide 20MG 113408 20 MILLIGRAMS PRN QD PO 11/08/2015 Oral Tablet 09:58 Prescription Detail 20 MILLIGRAMS PO PRN QD Ipratropium 1404695 1 EA RQID HHN 11/08/2015 [place]-Albuterol 09:58 Sulfate 0.5MG/3ML-3MG/3ML Inhalation Solution Prescription Detail 1 EA [facility] RQID metFORMIN HCl 633026 500 MILLIGRAMS 2X/ DAY PO 11/08/2015 500MG Oral WITH MEALS 09:58 Tablet Prescription Detail 500 MILLIGRAMS PO 2X/ DAY WITH MEALS Sotalol HCl 063541 40 MILLIGRAMS TWO TIMES PO 11/08/2015 80MG Oral PER DAY 09:58 Tablet Prescription Detail 40 MILLIGRAMS PO TWO TIMES PER DAY Azithromycin 692025 250 MILLIGRAMS DAILY PO 11/08/2015 250MG Oral Tablet 09:57 Prescription Detail 250 MILLIGRAMS PO DAILY Eliquis 5MG 4260011 5 MILLIGRAMS TWO TIMES PO 11/08/2015 Oral Tablet PER DAY 09:57 Prescription Detail 5 MILLIGRAMS PO TWO TIMES PER DAY Pravastatin 20MG 400627 20 MILLIGRAMS BEDTIME ORAL 11/11/2013 Oral Tablet DAILY 11:56 Prescription Detail TAKE 20 MILLIGRAMS ORAL BEDTIME DAILY Medications Administered During Visit Medication Dose Units Frequency Route Date/Time of Last Dose AZITHROMYCIN(ZITHRO Q24H IV 11/05/2015 MAX) 500MG/NS 250ML 01:14 IPRATROP/ALBUTEROL( 1 EA RQID HHN 11/08/2015 DUONEB) 0.5/3 3ML 07:03 RCS METHYLPREDNISOLONE( 125 MG Q8H IVP 11/05/2015 SOLU 01:14 MEDROL)125MG/2ML METHYLPREDNISOLONE( 125 MG Q8H IVP 11/08/2015 SOLU 07:53 MEDROL)125MG/2ML AZITHROMYCIN(ZITHRO Q24H IV 11/08/2015 MAX) 500MG/NS 250ML 00:59 SALINE FLUSH 5ML 5 ML BID IVP 11/08/2015 SYRINGE 07:53 ENOXAPARIN(LOVENOX) 40 MG DAILY SUB Q 11/06/2015 40MG/0.4 ML SYRINGE 08:29 PRAVASTATIN(PRAVACH 20 MG QHS PO 11/07/2015 OL) 20 MG TAB 21:04 METOPROLOL TARTRATE 25 MG BID PO 11/06/2015 (LOPRESSOR) 25MG 08:29 TAB CEFTRIAXONE(ROCEPHI Q24H IVPB 11/08/2015 N) 1GM / 50ML 07:53 PRE-MIX SOTALOL(BETAPACE) 40 MG BID PO 11/08/2015 80 MG TAB 07:53 APIXABAN(ELIQUIS) 5 5 MG BID PO 11/08/2015 MG TAB 07:53 NOVOLOG FLEXPEN Unit(s) PRN SUB Q 11/08/2015 SLIDING SCALE 06:41 MAG SULFATE X1 IVPB 11/06/2015 2GM/50ML SWFI 17:10 PRE-MIX FUROSEMIDE(LASIX) 20 MG X1 IVP 11/07/2015 20MG/2ML VIAL 09:09 PNEUMOCOCCAL 0.5 ML X1 IM 11/08/2015 13(PREVNAR 13) 09:41 0.5ML SYR TET/DIPT/PERT 0.5 ML X1 IM 11/08/2015 (BOOSTRIX)0.5 ML 09:41 SYR/VIAL FLU VACCINE(HIGH 0.5 ML X1 IM 11/08/2015 DOSE) 0.5ML DOSE 09:41 (64YO) Encounters Encounter Diagnosis Diagnosis Code Start Date Pneumonia, unspecified organism J189 11/05/2015 Social History Smoking Status Code Start Date End Date Current every day smoker [id number] Patient Decision Aids Patient Decision Aid COPD Exacerbation, [employer] Portal Patient Access [facility] Discharge Instructions You were admitted to [facility] on 11/05/2015 07:52 with a principal diagnosis of Pneumonia, unspecified organism You had the following tests done: BLOOD GASES - ADULT CBC WITH DIFFERENTIAL CHEM 14 COMPREHENSIVE METABOLIC PANEL CK CK-MB D-DIMER DAILY CBC WITH DIFF DAILY CBC WITH DIFF DAILY CBC WITH DIFF DAILY CHEM 14 DAILY CHEM 14 DAILY CHEM 14 DAILY MAGNESIUM DAILY MAGNESIUM FastTSH GLYCOHEMOGLOBIN LIPID PROFILE MAGNESIUM TROPONIN URINALYSIS You were discharged from [facility] on 11/08/2015 12:15 Should you have any questions prior to discharge, please contact a member of your healthcare team. If you have left the hospital and have any questions, please contact your primary care physician. Discharge Notes: ANGELINE GORDON AT BEDSIDE FOR DISCHARGE PLANNING. Discharge to: [facility] SKILLED, Accompanied by: LTC STAFF, Escorted per wheelchair to vehicle without incidence LTC STAFF, Belongings sent with patient. REPORT CALLED TO [facility] AT [facility]. Chief Complaint and Reason For Visit Chief Complaint Date of Onset COPD with exacerbation Function Status Unknown or Not Available. Plan of Care Unknown or Not Available. Referral/Transition of Care Unknown or Not Available.
[2017-12-14] MEDS ORDERED: IBUPROFEN 600 MG TABLET PO ONE (16:11)
--- NOTE | 2017-12-14 16:13 | XRay Report ---
INDICATION: generations clearance PROCEDURE: CHEST 2-VIEWS UPRIGHT (PA & LAT) Encounter: Initial COMPARISON: August 08, 2016 FINDINGS: Chronic scarring in the right middle lobe and left lower lobe. Lungs are mildly hyperinflated. No consolidative pneumonia. No pleural effusion or pneumothorax. Heart size and mediastinal contours are within normal limits. Pulmonary vascularity is normal. Impression: Stable chest without acute cardiopulmonary disease. .
--- NOTE | 2017-12-14 16:41 | XRay Report ---
Indication: abdominal pain PROCEDURE: XR abdomen 2V: Encounter: Initial Comparison: None Findings: The visualized lung bases are clear. There is no free air on the upright view. The bowel gas pattern is nonobstructive and nonspecific. Gas is seen in nondilated small and large bowel to the level of the rectum. Moderate stool is seen throughout the colon. The bony structures are grossly unremarkable. Impression: Nonobstructive nonspecific bowel gas pattern. .
[2017-12-14] MEDS ORDERED: LORazepam 0.5 MG TABLET PO PRN (17:56)
[2017-12-14] MEDS ORDERED: HALOPERIDOL 0.5 MG TABLET PO PRN (17:56)
[2017-12-14] MEDS ORDERED: HALOPERIDOL 5 MG/ML INJECTION IM PRN (17:56)
[2017-12-14] MEDS ORDERED: ALBUTEROL/IPRATROPIUM 2.5mg-0.5mg/3ml NEB AEROSOL PRN (17:57)
[2017-12-14] MEDS ORDERED: POLYETHYL GLYCOL 3350 17gm PACKET PO PRN (17:57)
[2017-12-14] MEDS ORDERED: ALBUTEROL/IPRATROPIUM 2.5mg-0.5mg/3ml NEB AEROSOL SCH (18:00)
[2017-12-14 18:32] VITALS: BMI 32.7
[2017-12-14] MEDS: BACLOFEN 10 MG TABLET PO SCH (20:42)
[2017-12-14] MEDS: RANITIDINE 150 MG TABLET PO SCH (20:43)
[2017-12-14] MEDS: TRAZODONE 50 MG TABLET PO SCH (20:44)
[2017-12-14] MEDS: SOTALOL 80 MG TABLET PO SCH (20:44)
[2017-12-14] MEDS: PRAVASTATIN 20 MG TABLET PO SCH (20:45)
[2017-12-14] MEDS: BUSPIRONE 15 MG TABLET PO SCH (20:45)
[2017-12-14] MEDS ORDERED: INSULIN GLARGINE 100unit/ml INJECTION SQ ONE (21:50)
[2017-12-14] MEDS: INSULIN GLARGINE 100unit/ml INJECTION SQ SCH (22:00)
[2017-12-15] MEDS: ALBUTEROL/IPRATROPIUM 2.5mg-0.5mg/3ml NEB AEROSOL SCH ×4 (03:20→22:15)
[2017-12-15] MEDS: SOTALOL 80 MG TABLET PO SCH ×2 (06:36→20:35)
[2017-12-15] MEDS: METFORMIN 500 MG TABLET PO SCH ×2 (08:39→17:26)
[2017-12-15] MEDS: BACLOFEN 10 MG TABLET PO SCH ×3 (08:42→20:34)
[2017-12-15] MEDS: BUSPIRONE 15 MG TABLET PO SCH ×3 (08:44→20:35)
[2017-12-15] MEDS: DULOXETINE 60 MG CAPSULE PO SCH (08:44)
[2017-12-15] MEDS: RANITIDINE 150 MG TABLET PO SCH ×2 (08:46→20:36)
[2017-12-15] MEDS ORDERED: FUROSEMIDE 40 MG TABLET PO SCH (09:00)
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
[2017-12-15] MEDS: ASPIRIN *EC* 81 MG TABLET PO SCH (09:25)
[2017-12-15] MEDS ORDERED: BISACODYL 10 MG SUPPOSITORY RECTALLY PRN (09:32)
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
[2017-12-15] MEDS: NYSTATIN 500,000 units/5 ml ORAL LIQUID PO SCH ×3 (12:32→20:36)
[2017-12-15] MEDS: IBUPROFEN 400 MG TABLET PO PRN (15:22)
[2017-12-15] MEDS: INSULIN GLARGINE 100unit/ml INJECTION SQ SCH (18:00)
[2017-12-15] MEDS: PRAVASTATIN 20 MG TABLET PO SCH (20:36)
[2017-12-15] MEDS: TRAZODONE 50 MG TABLET PO SCH (20:37)
[2017-12-15] MEDS: SENNA + DOCUSATE TABLET PO SCH (20:38)
[2017-12-16] MEDS: SOTALOL 80 MG TABLET PO SCH ×2 (05:33→19:55)
[2017-12-16] MEDS: ALBUTEROL/IPRATROPIUM 2.5mg-0.5mg/3ml NEB AEROSOL SCH ×4 (05:53→20:23)
[2017-12-16] MEDS: METFORMIN 500 MG TABLET PO SCH ×2 (08:48→17:38)
[2017-12-16] MEDS: ASPIRIN *EC* 81 MG TABLET PO SCH (08:48)
[2017-12-16] MEDS: BACLOFEN 10 MG TABLET PO SCH ×4 (08:48→22:23)
[2017-12-16] MEDS: BUSPIRONE 15 MG TABLET PO SCH ×3 (08:48→19:59)
[2017-12-16] MEDS: DULOXETINE 60 MG CAPSULE PO SCH (08:49)
[2017-12-16] MEDS: RANITIDINE 150 MG TABLET PO SCH ×2 (08:49→20:00)
[2017-12-16] MEDS: NYSTATIN 500,000 units/5 ml ORAL LIQUID PO SCH ×4 (08:49→19:59)
[2017-12-16] MEDS: SENNA + DOCUSATE TABLET PO SCH ×2 (08:49→20:01)
[2017-12-16] MEDS: IBUPROFEN 400 MG TABLET PO PRN ×2 (09:00→20:28)
--- NOTE | 2017-12-16 13:43 | Neuropsych Progress Note ---
Generations Subjective Date: 12/16/17 - Sujective/Severity of Illness Medications: Acetaminophen (Tylenol) 1,000 mg PO TID PRN PRN Reason: Pain Albuterol/Ipratropium (Duoneb) 3 ml AEROSOL Q4H PRN PRN Reason: Shortness of air/wheezing Albuterol/Ipratropium (Duoneb) 3 ml AEROSOL Q6H [facility] Last Admin: 12/16/17 08:09 Dose: 3 ml Aspirin (Ecotrin) 81 mg PO DAILY [facility] Last Admin: 12/16/17 08:48 Dose: 81 mg Baclofen (Lioresal) 5 mg PO TID [facility] Last Admin: 12/16/17 08:48 Dose: 5 mg Bisacodyl (Dulcolax) 10 mg RECTALLY DAILY PRN PRN Reason: Constipation Buspirone HCl (Buspar) 7.5 mg PO TID [facility] Last Admin: 12/16/17 08:48 Dose: 7.5 mg Cholecalciferol (Vit. D-3) 1,000 unit PO BID [facility] Last Admin: 12/15/17 09:25 Dose: 1,000 unit Duloxetine HCl (Cymbalta) 60 mg PO DAILY [facility] Last Admin: 12/16/17 08:49 Dose: 60 mg Haloperidol (Haldol) 0.5 mg PO Q6H PRN PRN Reason: Extreme agitation Haloperidol Lactate (Haldol) 0.5 mg IM Q6H PRN PRN Reason: Extreme agitation Ibuprofen (Motrin) 400 mg PO Q6H PRN PRN Reason: Pain Last Admin: 12/16/17 09:00 Dose: 400 mg Insulin Glargine (Lantus) 42 unit SQ 1800 [facility] Last Admin: 12/15/17 18:00 Dose: 42 unit Lorazepam (Ativan) 0.5 mg PO Q6H PRN PRN Reason: Extreme agitation Lorazepam (Ativan Inj) 0.5 mg IM Q6H PRN PRN Reason: Extreme agitation Magnesium Hydroxide (Mom) 30 ml PO DAILY PRN PRN Reason: Constipation Metformin HCl (Glucophage) 500 mg PO BIDWM [facility] Last Admin: 12/16/17 08:48 Dose: 500 mg Nystatin (Mycostatin) 5 ml PO QID [facility] Last Admin: 12/16/17 12:22 Dose: 5 ml Polyethylene Glycol (Miralax) 17 gm PO DAILY PRN PRN Reason: Constipation Pravastatin Sodium (Pravachol) 20 mg PO [facility] Last Admin: 12/15/17 20:36 Dose: 20 mg Ranitidine HCl (Zantac) 75 mg PO BID [facility] Last Admin: 12/16/17 08:49 Dose: 75 mg Risperidone (Risperdal) 0.125 mg PO BID [facility] Last Admin: 12/16/17 09:45 Dose: 0.125 mg Fluticasone/Salmeterol (Advair Diskus) 1 puff ORAL INH BID PRN PRN Reason: Shortness of air/wheezing Senna/Docusate Sodium (Senna Plus Tablet) 1 tab PO BID [facility] Last Admin: 12/16/17 08:49 Dose: 1 tab Sotalol HCl (Betapace) 40 mg PO BID/E [facility] Last Admin: 12/16/17 05:33 Dose: 40 mg Trazodone HCl (Desyrel) 25 mg PO [facility] Last Admin: 12/15/17 20:37 Dose: 25 mg Subjective: Patient seen and chart reviewed. Case discussed with treatment team. On interview, patient is pleasant and easily engaged. She continues to endorse depressed mood and persistent SI with plan. Patient states that she felt staff were not keeping a close enough eye on her last night and feels she is still in danger of harming herself. For example, she states that they left her walker by her bed and she is capable of self-harming with it. She prefers her walker, wheelchair be left outside the room. She reports feeling frustrated with nursing staff last night (and they were misinformed about statements patient made) but says she dealt with it and is okay now. Patient denies any HI. She has endorsed AH in the form of loud bangs. Patient denies any adverse side effects related to psychotropic medications. Nursing staff report has not had any significant problematic behaviors while on the unit though was upset with them last night. Patient has been adherent with medications. Patient slept 7 hours overnight. VSS. Patient is eating well. Psychotropic PRNs required in the past 24 hours: none. Start Time: 10:20 Stop Time: 10:40 Mental Status Exam Vitals: Last Vital Signs Temp 96.7 F L 12/16/17 08:37 Pulse 82 12/16/17 08:37 Resp 16 12/16/17 08:37 BP 139/67 12/16/17 08:37 Pulse Ox 90 12/16/17 08:37 Height: 1.6 m Weight: 83.8 kg - Mental Status Exam Muscle Strength/Tone: Normal Dressing: Casual Grooming: Fair Attitude: Cooperative Motor Activity: Retardation Eye Contact: Good Speech: Normal Volume: Normal Rhythm: Appropriate Rhythm Orientation: Disoriented to time (month and year only), Oriented to place, Oriented to time Mood: Depressed Affect: Relaxed Rate of Thoughts: Delayed Thought Organization: Circumstantial, [place] Associations: Illogical (at times) Abstract Reasoning: Poor abstract reasoning Computation: Poor Computation (likely at baseline) Thought Content: Ruminations, Helplessness, Grandeur (questionable), Somatic Concerns Perception/Psychotic: Other (endorses hearing big bangs but denies hearing voices, denies VH of psychiatric nature) Language: Naming Intact Fund of Knowledge: Other (below average at baseline) Memory: Poor-recent Suicidal Ideation: Persistent, Plan (strangle self with O2 tubing) Homicidal Ideation: Denies Insight: Poor Judgement: Poor Impulse Control: Fair - Laboratory Result Diagrams: 12/14/17 15:52 12/16/17 06:56 Laboratory Results - last 24 hr 12/16/17 12/16/17 06:56 06:56 Turbidity < 20 Sodium 143 Potassium 4.0 Chloride 98 Carbon Dioxide 34 H Anion Gap 11 BUN 21.0 H Creatinine 0.9 GFR Calculation 61 BUN/Creatinine Ratio 23 Glucose 150 H Hemoglobin A1c 8.1 H Calculated Osmolality 281 H Calcium 10.6 H D Total Bilirubin 0.70 Icterus Index < 2 AST 35 ALT 31 Alkaline Phosphatase 61 Total Protein 7.4 Albumin 4.2 Globulin 3.2 Albumin/Globulin Ratio 1.3 Triglycerides 246 H Cholesterol 140 LDL Cholesterol, Calc 63.8 L VLDL Cholesterol 49.2 H HDL Cholesterol 27 L Cholesterol/HDL Ratio 5.2 H PTH Intact 81.4 H Specimen Hemolysis < 15 Assessment and Plan (1) Depressive disorder Problem details: R/O MDD with psychotic features Current visit: Yes Status: Acute (2) Personality disorder Current visit: Yes Status: Acute (3) PTSD (post-traumatic stress disorder) Current visit: Yes Status: Acute (4) Major neurocognitive disorder Problem details: Other medical conditions: Hypercalcemia Hypernatremia Thrush Constipation per [facility] (though pt reports diarrhea COPD Elevated LFTs Leukocytosis DM2 Current visit: Yes Status: Acute Today, will order Vitamin B12 1000mcg IM x 3days, then weekly x 1 month. Will increase Risperdal to 0.25mg PO BID and discuss increasing Cymbalta vs. starting an alternate antidepressant. Hospital Course Summary Disclaimer: The visit summary below is not to be considered part of the above Progress Note. Hospital Course: 12/15/17 Hypercalcemia Corrected calcium is still elevated - will check PTH for further eval. Mag level checked - normal at 1.7. Hold vitamin D. Hypernatremia Encourage fluids. May need to hold Lasix if remains elevated on recheck. Will continue Lasix for now b/c of hypercalcemia. Thrush Start Nystatin Constipation per [facility] (though pt reports diarrhea) Dulcolax suppository, Senna + BID If she truly does have diarrhea with 4+ episodes per day, should check for C. diff b/c of recent abx use. COPD Recently had courses of Augmentin and Z-pack, as well as prednisone taper CXR - no pneumonia Sputum cx if possible Continue current management regimen; hold abx for now Elevated LFTs Mild. Follow. Hold statin if worsens. ? r/t psych meds Leukocytosis Mild. No other persistent SIRS criteria to suggest infection. Follow. DM2 Monitor fasting glucose & PRN - pt only checks fasting May need to adjust Lantus if fastings are low. Cont Metformin. Typically runs 170-180s Hgb A1c pending. Major depressive disorder with suicidal ideation, Paranoid schizophrenia, Dementia, Anxiety Per attending. Provide safe, supportive environment. Generations w/u pending - B12, folate TSH normal Psych 12/16/17: Today, will order Vitamin B12 1000mcg IM x 3days, then weekly x 1 month. Will increase Risperdal to 0.25mg PO BID and discuss increasing Cymbalta vs. starting an alternate antidepressant.
[2017-12-16] MEDS: CYANOCOBALAMIN (B-12) 1,000mcg/ml INJECTION IM SCH (15:25)
[2017-12-16] MEDS: INSULIN GLARGINE 100unit/ml INJECTION SQ SCH (17:38)
[2017-12-16] MEDS: PRAVASTATIN 20 MG TABLET PO SCH (20:00)
[2017-12-16] MEDS: TRAZODONE 50 MG TABLET PO SCH (20:01)
[2017-12-16] MEDS ORDERED: BENZOCAINE/MENTHOL SORE THROAT LOZENGE PO PRN (23:09)
[2017-12-17] MEDS: SOTALOL 80 MG TABLET PO SCH ×2 (05:13→20:28)
[2017-12-17] MEDS: ALBUTEROL/IPRATROPIUM 2.5mg-0.5mg/3ml NEB AEROSOL SCH ×4 (05:26→20:30)
[2017-12-17] MEDS: BACLOFEN 10 MG TABLET PO SCH ×3 (08:53→20:28)
[2017-12-17] MEDS: METFORMIN 500 MG TABLET PO SCH ×2 (08:53→17:33)
[2017-12-17] MEDS: ASPIRIN *EC* 81 MG TABLET PO SCH (08:53)
[2017-12-17] MEDS: BUSPIRONE 15 MG TABLET PO SCH ×3 (08:54→20:28)
[2017-12-17] MEDS: DULOXETINE 60 MG CAPSULE PO SCH (08:56)
[2017-12-17] MEDS: CYANOCOBALAMIN (B-12) 1,000mcg/ml INJECTION IM SCH (08:56)
[2017-12-17] MEDS: NYSTATIN 500,000 units/5 ml ORAL LIQUID PO SCH ×4 (08:57→20:27)
[2017-12-17] MEDS: SENNA + DOCUSATE TABLET PO SCH ×2 (08:57→20:27)
[2017-12-17] MEDS: RANITIDINE 150 MG TABLET PO SCH ×2 (08:57→20:28)
[2017-12-17] MEDS: IBUPROFEN 400 MG TABLET PO PRN ×3 (12:08→18:59)
--- NOTE | 2017-12-17 15:13 | Neuropsych Progress Note ---
Generations Subjective Date: 12/17/17 - Sujective/Severity of Illness Medications: Acetaminophen (Tylenol) 1,000 mg PO TID PRN PRN Reason: Pain Albuterol/Ipratropium (Duoneb) 3 ml AEROSOL Q4H PRN PRN Reason: Shortness of air/wheezing Albuterol/Ipratropium (Duoneb) 3 ml AEROSOL Q6H [facility] Last Admin: 12/17/17 07:55 Dose: 3 ml Aspirin (Ecotrin) 81 mg PO DAILY [facility] Last Admin: 12/17/17 08:53 Dose: 81 mg Baclofen (Lioresal) 5 mg PO TID [facility] Last Admin: 12/17/17 14:41 Dose: 5 mg Benzocaine (Cepacol Sore Throat Lozenge) 1 lozenge PO Q2H PRN PRN Reason: Sore throat Bisacodyl (Dulcolax) 10 mg RECTALLY DAILY PRN PRN Reason: Constipation Buspirone HCl (Buspar) 7.5 mg PO TID [facility] Last Admin: 12/17/17 14:41 Dose: 7.5 mg Cholecalciferol (Vit. D-3) 1,000 unit PO BID [facility] Last Admin: 12/15/17 09:25 Dose: 1,000 unit Cyanocobalamin (Vit. B-12) 1,000 mcg IM DAILY [facility] Stop: 12/18/17 09:01 Last Admin: 12/17/17 08:56 Dose: 1,000 mcg Duloxetine HCl (Cymbalta) 60 mg PO DAILY [facility] Last Admin: 12/17/17 08:56 Dose: 60 mg Haloperidol (Haldol) 0.5 mg PO Q6H PRN PRN Reason: Extreme agitation Haloperidol Lactate (Haldol) 0.5 mg IM Q6H PRN PRN Reason: Extreme agitation Ibuprofen (Motrin) 400 mg PO Q6H PRN PRN Reason: Pain Last Admin: 12/17/17 13:10 Dose: 400 mg Insulin Glargine (Lantus) 42 unit SQ 1800 [facility] Last Admin: 12/16/17 17:38 Dose: 42 unit Lorazepam (Ativan) 0.5 mg PO Q6H PRN PRN Reason: Extreme agitation Lorazepam (Ativan Inj) 0.5 mg IM Q6H PRN PRN Reason: Extreme agitation Magnesium Hydroxide (Mom) 30 ml PO DAILY PRN PRN Reason: Constipation Metformin HCl (Glucophage) 500 mg PO BIDWM [facility] Last Admin: 12/17/17 08:53 Dose: 500 mg Nystatin (Mycostatin) 5 ml PO QID [facility] Last Admin: 12/17/17 14:00 Dose: 5 ml Polyethylene Glycol (Miralax) 17 gm PO DAILY PRN PRN Reason: Constipation Pravastatin Sodium (Pravachol) 20 mg PO [facility] Last Admin: 12/16/17 20:00 Dose: 20 mg Ranitidine HCl (Zantac) 75 mg PO BID [facility] Last Admin: 12/17/17 08:57 Dose: 75 mg Risperidone (Risperdal) 0.25 mg PO BID [facility] Last Admin: 12/17/17 08:57 Dose: 0.25 mg Fluticasone/Salmeterol (Advair Diskus) 1 puff ORAL INH BID PRN PRN Reason: Shortness of air/wheezing Senna/Docusate Sodium (Senna Plus Tablet) 1 tab PO BID [facility] Last Admin: 12/17/17 08:57 Dose: 1 tab Sotalol HCl (Betapace) 40 mg PO BID [facility] Trazodone HCl (Desyrel) 25 mg PO [facility] Last Admin: 12/16/17 20:01 Dose: 25 mg Subjective: Patient seen and chart reviewed. Nursing reports pt remains on 1:1 after suicidal statement yesterday. Sleeping well and has a good appetite. On face to face the pt states she feels a little better. Her mood is improved. She reports S/I at times but states her kids are a protective factor. Tolerating meds Start Time: 10:15 Stop Time: 10:30 Mental Status Exam Vitals: Last Vital Signs Temp 97.0 F 12/17/17 08:49 Pulse 86 12/17/17 08:49 Resp 16 12/17/17 08:49 BP 124/70 12/17/17 08:49 Pulse Ox 91 12/17/17 08:49 Height: 1.6 m Weight: 83.8 kg - Mental Status Exam Muscle Strength/Tone: Normal Dressing: Casual Grooming: Fair Attitude: Cooperative Motor Activity: Retardation Eye Contact: Good Speech: Normal Volume: Normal Rhythm: Appropriate Rhythm Orientation: Disoriented to time (month and year only), Oriented to place, Oriented to time Mood: Depressed Rate of Thoughts: Delayed Thought Organization: Circumstantial, [place] Associations: Illogical (at times) Abstract Reasoning: Poor abstract reasoning Computation: Poor Computation (likely at baseline) Thought Content: Ruminations, Helplessness, Grandeur (questionable), Somatic Concerns Perception/Psychotic: Other (endorses hearing big bangs but denies hearing voices, denies VH of psychiatric nature) Language: Naming Intact Fund of Knowledge: Other (below average at baseline) Memory: Poor-recent Suicidal Ideation: Persistent, Plan (strangle self with O2 tubing) Homicidal Ideation: Denies Insight: Poor Judgement: Poor Impulse Control: Fair - Laboratory Result Diagrams: 12/17/17 07:10 12/17/17 07:10 Laboratory Results - last 24 hr 12/16/17 12/17/17 12/17/17 17:10 05:19 07:10 WBC 7.8 RBC 4.67 Hgb 13.3 Hct 42.5 MCV 91.0 MCH 28.5 MCHC 31.3 RDW Std Deviation 48.2 Plt Count 215 MPV 10.9 Immature Gran % (Auto) 0.4 Neut % (Auto) 64.1 Lymph % (Auto) 22.0 L [place] % (Auto) 10.1 H Eos % (Auto) 2.9 Baso % (Auto) 0.5 Neut # (Auto) 5.0 Lymph # (Auto) 1.7 [place] # (Auto) 0.8 Eos # (Auto) 0.2 Baso # (Auto) 0.0 Abs Immat Gran (auto) 0.03 Turbidity Sodium Potassium Chloride Carbon Dioxide Anion Gap BUN Creatinine GFR Calculation BUN/Creatinine Ratio Glucose Glucometer 225 134 Calculated Osmolality Calcium Icterus Index Specimen Hemolysis 12/17/17 07:10 WBC RBC Hgb Hct MCV MCH MCHC RDW Std Deviation Plt Count MPV Immature Gran % (Auto) Neut % (Auto) Lymph % (Auto) [place] % (Auto) Eos % (Auto) Baso % (Auto) Neut # (Auto) Lymph # (Auto) [place] # (Auto) Eos # (Auto) Baso # (Auto) Abs Immat Gran (auto) Turbidity < 20 Sodium 145 H Potassium 3.9 Chloride 100 Carbon Dioxide 35 H Anion Gap 10 BUN 16.0 Creatinine 0.7 D GFR Calculation 82 BUN/Creatinine Ratio 23 Glucose 140 H Glucometer Calculated Osmolality 282 H Calcium 10.4 H Icterus Index < 2 Specimen Hemolysis < 15 Assessment and Plan (1) Depressive disorder Problem details: R/O MDD with psychotic features Current visit: Yes Status: Acute (2) Personality disorder Current visit: Yes Status: Acute (3) PTSD (post-traumatic stress disorder) Current visit: Yes Status: Acute (4) Major neurocognitive disorder Problem details: Other medical conditions: Hypercalcemia Hypernatremia Thrush Constipation per [facility] (though pt reports diarrhea COPD Elevated LFTs Leukocytosis DM2 Current visit: Yes Status: Acute Hospital Course Summary Disclaimer: The visit summary below is not to be considered part of the above Progress Note. Hospital Course: 12/15/17 Hypercalcemia Corrected calcium is still elevated - will check PTH for further eval. Mag level checked - normal at 1.7. Hold vitamin D. Hypernatremia Encourage fluids. May need to hold Lasix if remains elevated on recheck. Will continue Lasix for now b/c of hypercalcemia. Thrush Start Nystatin Constipation per [facility] (though pt reports diarrhea) Dulcolax suppository, Senna + BID If she truly does have diarrhea with 4+ episodes per day, should check for C. diff b/c of recent abx use. COPD Recently had courses of Augmentin and Z-pack, as well as prednisone taper CXR - no pneumonia Sputum cx if possible Continue current management regimen; hold abx for now Elevated LFTs Mild. Follow. Hold statin if worsens. ? r/t psych meds Leukocytosis Mild. No other persistent SIRS criteria to suggest infection. Follow. DM2 Monitor fasting glucose & PRN - pt only checks fasting May need to adjust Lantus if fastings are low. Cont Metformin. Typically runs 170-180s Hgb A1c pending. Major depressive disorder with suicidal ideation, Paranoid schizophrenia, Dementia, Anxiety Per attending. Provide safe, supportive environment. Generations w/u pending - B12, folate TSH normal Psych 12/16/17: Today, will order Vitamin B12 1000mcg IM x 3days, then weekly x 1 month. Will increase Risperdal to 0.25mg PO BID and discuss increasing Cymbalta vs. starting an alternate antidepressant. 12/17/17 Psych- some S/I at times. Continue current care
[2017-12-17] MEDS: INSULIN GLARGINE 100unit/ml INJECTION SQ SCH (17:33)
[2017-12-17] MEDS: PRAVASTATIN 20 MG TABLET PO SCH (20:27)
[2017-12-17] MEDS: TRAZODONE 50 MG TABLET PO SCH (20:28)
[2017-12-17] MEDS: ACETAMINOPHEN 500 MG TABLET PO PRN (23:10)
[2017-12-18] MEDS: ALBUTEROL/IPRATROPIUM 2.5mg-0.5mg/3ml NEB AEROSOL SCH ×4 (04:30→20:35)
[2017-12-18] MEDS: IBUPROFEN 400 MG TABLET PO PRN (06:18)
[2017-12-18] MEDS: CYANOCOBALAMIN (B-12) 1,000mcg/ml INJECTION IM SCH (09:24)
[2017-12-18] MEDS: ASPIRIN *EC* 81 MG TABLET PO SCH (09:26)
[2017-12-18] MEDS: NYSTATIN 500,000 units/5 ml ORAL LIQUID PO SCH ×4 (09:26→20:31)
[2017-12-18] MEDS: RANITIDINE 150 MG TABLET PO SCH ×2 (09:26→20:32)
[2017-12-18] MEDS: DULOXETINE 60 MG CAPSULE PO SCH (09:27)
[2017-12-18] MEDS: BACLOFEN 10 MG TABLET PO SCH ×3 (09:27→20:29)
[2017-12-18] MEDS: BUSPIRONE 15 MG TABLET PO SCH ×3 (09:27→20:30)
[2017-12-18] MEDS: METFORMIN 500 MG TABLET PO SCH ×2 (09:28→17:21)
[2017-12-18] MEDS: SOTALOL 80 MG TABLET PO SCH ×2 (09:28→20:34)
[2017-12-18] MEDS: SENNA + DOCUSATE TABLET PO SCH ×2 (09:29→20:33)
--- NOTE | 2017-12-18 13:21 | Neuropsych Progress Note ---
Generations Subjective Date: 12/18/17 - Sujective/Severity of Illness Medications: Acetaminophen (Tylenol) 1,000 mg PO TID PRN PRN Reason: Pain Last Admin: 12/17/17 23:10 Dose: 1,000 mg Albuterol/Ipratropium (Duoneb) 3 ml AEROSOL Q4H PRN PRN Reason: Shortness of air/wheezing Albuterol/Ipratropium (Duoneb) 3 ml AEROSOL Q6H [facility] Last Admin: 12/18/17 08:50 Dose: 3 ml Aspirin (Ecotrin) 81 mg PO DAILY [facility] Last Admin: 12/18/17 09:26 Dose: 81 mg Baclofen (Lioresal) 5 mg PO TID [facility] Last Admin: 12/18/17 09:27 Dose: 5 mg Benzocaine (Cepacol Sore Throat Lozenge) 1 lozenge PO Q2H PRN PRN Reason: Sore throat Bisacodyl (Dulcolax) 10 mg RECTALLY DAILY PRN PRN Reason: Constipation Buspirone HCl (Buspar) 7.5 mg PO TID [facility] Last Admin: 12/18/17 09:27 Dose: 7.5 mg Cholecalciferol (Vit. D-3) 1,000 unit PO BID [facility] Last Admin: 12/15/17 09:25 Dose: 1,000 unit Duloxetine HCl (Cymbalta) 60 mg PO DAILY [facility] Last Admin: 12/18/17 09:27 Dose: 60 mg Haloperidol (Haldol) 0.5 mg PO Q6H PRN PRN Reason: Extreme agitation Haloperidol Lactate (Haldol) 0.5 mg IM Q6H PRN PRN Reason: Extreme agitation Ibuprofen (Motrin) 400 mg PO Q6H PRN PRN Reason: Pain Last Admin: 12/18/17 06:18 Dose: 400 mg Insulin Glargine (Lantus) 42 unit SQ 1800 [facility] Last Admin: 12/17/17 17:33 Dose: 42 unit Lorazepam (Ativan) 0.5 mg PO Q6H PRN PRN Reason: Extreme agitation Lorazepam (Ativan Inj) 0.5 mg IM Q6H PRN PRN Reason: Extreme agitation Magnesium Hydroxide (Mom) 30 ml PO DAILY PRN PRN Reason: Constipation Metformin HCl (Glucophage) 500 mg PO BIDWM [facility] Last Admin: 12/18/17 09:28 Dose: 500 mg Nystatin (Mycostatin) 5 ml PO QID [facility] Last Admin: 12/18/17 09:26 Dose: 5 ml Polyethylene Glycol (Miralax) 17 gm PO DAILY PRN PRN Reason: Constipation Pravastatin Sodium (Pravachol) 20 mg PO [facility] Last Admin: 12/17/17 20:27 Dose: 20 mg Ranitidine HCl (Zantac) 75 mg PO BID [facility] Last Admin: 12/18/17 09:26 Dose: 75 mg Risperidone (Risperdal) 0.25 mg PO BID [facility] Last Admin: 12/18/17 09:26 Dose: 0.25 mg Fluticasone/Salmeterol (Advair Diskus) 1 puff ORAL INH BID PRN PRN Reason: Shortness of air/wheezing Senna/Docusate Sodium (Senna Plus Tablet) 1 tab PO BID [facility] Last Admin: 12/18/17 09:29 Dose: 1 tab Sotalol HCl (Betapace) 40 mg PO BID [facility] Last Admin: 12/18/17 09:28 Dose: 40 mg Trazodone HCl (Desyrel) 25 mg PO [facility] Last Admin: 12/17/17 20:28 Dose: 25 mg Subjective: Patient seen and chart reviewed. Nursing reports pt remains on 1:1 after suicidal statement two days ago. Sleeping well and has a good appetite. On face to face the pt states she feels a little better. She reports her mood has improved. She reports she does well if she has others to talk to but when she is alone she starts to have morbid thoughts. She denies any S/I today. Tolerating meds Start Time: 10:45 Stop Time: 11:00 Mental Status Exam Vitals: Last Vital Signs Temp 97.2 F 12/18/17 09:14 Pulse 97 12/18/17 09:14 Resp 18 12/18/17 09:14 BP 130/81 12/18/17 09:14 Pulse Ox 90 12/18/17 09:14 Height: 1.6 m Weight: 83.8 kg - Mental Status Exam Muscle Strength/Tone: Normal Dressing: Casual Grooming: Fair Attitude: Cooperative Motor Activity: Retardation Eye Contact: Good Speech: Normal Volume: Normal Rhythm: Appropriate Rhythm Orientation: Disoriented to time (month and year only), Oriented to place, Oriented to time Mood: Depressed Rate of Thoughts: Delayed Thought Organization: Circumstantial, [place] Associations: Illogical (at times) Abstract Reasoning: Poor abstract reasoning Computation: Poor Computation (likely at baseline) Thought Content: Ruminations, Helplessness, Grandeur (questionable), Somatic Concerns Perception/Psychotic: Other (endorses hearing big bangs but denies hearing voices, denies VH of psychiatric nature) Language: Naming Intact Fund of Knowledge: Other (below average at baseline) Memory: Poor-recent Suicidal Ideation: Persistent, Plan (strangle self with O2 tubing) Homicidal Ideation: Denies Insight: Poor Judgement: Poor Impulse Control: Fair - Laboratory Result Diagrams: 12/17/17 07:10 12/17/17 07:10 Laboratory Results - last 24 hr 12/17/17 17:09 Glucometer 111 Assessment and Plan (1) Depressive disorder Problem details: R/O MDD with psychotic features Current visit: Yes Status: Acute (2) Personality disorder Current visit: Yes Status: Acute (3) PTSD (post-traumatic stress disorder) Current visit: Yes Status: Acute (4) Major neurocognitive disorder Problem details: Other medical conditions: Hypercalcemia Hypernatremia Thrush Constipation per [facility] (though pt reports diarrhea COPD Elevated LFTs Leukocytosis DM2 Current visit: Yes Status: Acute Hospital Course Summary Disclaimer: The visit summary below is not to be considered part of the above Progress Note. Hospital Course: 12/15/17 Hypercalcemia Corrected calcium is still elevated - will check PTH for further eval. Mag level checked - normal at 1.7. Hold vitamin D. Hypernatremia Encourage fluids. May need to hold Lasix if remains elevated on recheck. Will continue Lasix for now b/c of hypercalcemia. Thrush Start Nystatin Constipation per [facility] (though pt reports diarrhea) Dulcolax suppository, Senna + BID If she truly does have diarrhea with 4+ episodes per day, should check for C. diff b/c of recent abx use. COPD Recently had courses of Augmentin and Z-pack, as well as prednisone taper CXR - no pneumonia Sputum cx if possible Continue current management regimen; hold abx for now Elevated LFTs Mild. Follow. Hold statin if worsens. ? r/t psych meds Leukocytosis Mild. No other persistent SIRS criteria to suggest infection. Follow. DM2 Monitor fasting glucose & PRN - pt only checks fasting May need to adjust Lantus if fastings are low. Cont Metformin. Typically runs 170-180s Hgb A1c pending. Major depressive disorder with suicidal ideation, Paranoid schizophrenia, Dementia, Anxiety Per attending. Provide safe, supportive environment. Generations w/u pending - B12, folate TSH normal Psych 12/16/17: Today, will order Vitamin B12 1000mcg IM x 3days, then weekly x 1 month. Will increase Risperdal to 0.25mg PO BID and discuss increasing Cymbalta vs. starting an alternate antidepressant. 12/17/17 Psych- some S/I at times. Continue current care 12/18/17 Psych- Pt slightly improved. Continue current care
[2017-12-18] MEDS: INSULIN GLARGINE 100unit/ml INJECTION SQ SCH (17:21)
[2017-12-18] MEDS: ACETAMINOPHEN 500 MG TABLET PO PRN (17:25)
[2017-12-18] MEDS: PRAVASTATIN 20 MG TABLET PO SCH (20:32)
[2017-12-18] MEDS: TRAZODONE 50 MG TABLET PO SCH (20:35)
[2017-12-19] MEDS: ACETAMINOPHEN 500 MG TABLET PO PRN ×2 (05:34→13:12)
[2017-12-19] MEDS: ALBUTEROL/IPRATROPIUM 2.5mg-0.5mg/3ml NEB AEROSOL SCH ×5 (06:12→20:20)
[2017-12-19] MEDS: NYSTATIN 500,000 units/5 ml ORAL LIQUID PO SCH ×4 (09:37→20:17)
[2017-12-19] MEDS: SENNA + DOCUSATE TABLET PO SCH ×2 (09:37→20:16)
[2017-12-19] MEDS: METFORMIN 500 MG TABLET PO SCH ×2 (09:37→17:31)
[2017-12-19] MEDS: BUSPIRONE 15 MG TABLET PO SCH ×3 (09:37→20:16)
[2017-12-19] MEDS: ASPIRIN *EC* 81 MG TABLET PO SCH (09:37)
[2017-12-19] MEDS: SOTALOL 80 MG TABLET PO SCH ×2 (09:38→20:15)
[2017-12-19] MEDS: DULOXETINE 60 MG CAPSULE PO SCH (09:38)
[2017-12-19] MEDS: BACLOFEN 10 MG TABLET PO SCH ×3 (09:38→20:16)
[2017-12-19] MEDS: RANITIDINE 150 MG TABLET PO SCH ×2 (09:38→20:14)
--- NOTE | 2017-12-19 15:04 | Neuropsych Progress Note ---
[facility] Subjective Date: 12/19/17 - Sujective/Severity of Illness Medications: Acetaminophen (Tylenol) 1,000 mg PO TID PRN PRN Reason: Pain Last Admin: 12/19/17 13:12 Dose: 1,000 mg Acetic Acid (Acetic Acid) 5 drop EACH EAR QID [facility] Stop: 12/23/17 17:00 Albuterol/Ipratropium (Duoneb) 3 ml AEROSOL Q4H PRN PRN Reason: Shortness of air/wheezing Albuterol/Ipratropium (Duoneb) 3 ml AEROSOL RTQID [facility] Last Admin: 12/19/17 14:58 Dose: 3 ml Aspirin (Ecotrin) 81 mg PO DAILY [facility] Last Admin: 12/19/17 09:37 Dose: 81 mg Baclofen (Lioresal) 5 mg PO TID [facility] Last Admin: 12/19/17 09:38 Dose: 5 mg Benzocaine (Cepacol Sore Throat Lozenge) 1 lozenge PO Q2H PRN PRN Reason: Sore throat Bisacodyl (Dulcolax) 10 mg RECTALLY DAILY PRN PRN Reason: Constipation Buspirone HCl (Buspar) 7.5 mg PO TID [facility] Last Admin: 12/19/17 09:37 Dose: 7.5 mg Cholecalciferol (Vit. D-3) 1,000 unit PO BID [facility] Last Admin: 12/15/17 09:25 Dose: 1,000 unit Duloxetine HCl (Cymbalta) 60 mg PO DAILY [facility] Last Admin: 12/19/17 09:38 Dose: 60 mg Haloperidol (Haldol) 0.5 mg PO Q6H PRN PRN Reason: Extreme agitation Haloperidol Lactate (Haldol) 0.5 mg IM Q6H PRN PRN Reason: Extreme agitation Ibuprofen (Motrin) 400 mg PO Q6H PRN PRN Reason: Pain Last Admin: 12/18/17 06:18 Dose: 400 mg Insulin Glargine (Lantus) 42 unit SQ 1800 [facility] Last Admin: 12/18/17 17:21 Dose: 42 unit Lorazepam (Ativan) 0.5 mg PO Q6H PRN PRN Reason: Extreme agitation Lorazepam (Ativan Inj) 0.5 mg IM Q6H PRN PRN Reason: Extreme agitation Magnesium Hydroxide (Mom) 30 ml PO DAILY PRN PRN Reason: Constipation Metformin HCl (Glucophage) 500 mg PO BIDWM [facility] Last Admin: 12/19/17 09:37 Dose: 500 mg Nystatin (Mycostatin) 5 ml PO QID [facility] Last Admin: 12/19/17 12:38 Dose: 5 ml Polyethylene Glycol (Miralax) 17 gm PO DAILY PRN PRN Reason: Constipation Pravastatin Sodium (Pravachol) 20 mg PO [facility] Last Admin: 12/18/17 20:32 Dose: 20 mg Ranitidine HCl (Zantac) 75 mg PO BID [facility] Last Admin: 12/19/17 09:38 Dose: 75 mg Risperidone (Risperdal) 0.25 mg PO BID [facility] Last Admin: 12/19/17 09:37 Dose: 0.25 mg Fluticasone/Salmeterol (Advair Diskus) 1 puff ORAL INH BID PRN PRN Reason: Shortness of air/wheezing Last Admin: 12/19/17 08:48 Dose: 1 puff Senna/Docusate Sodium (Senna Plus Tablet) 1 tab PO BID [facility] Last Admin: 12/19/17 09:37 Dose: 1 tab Sotalol HCl (Betapace) 40 mg PO BID [facility] Last Admin: 12/19/17 09:38 Dose: 40 mg Trazodone HCl (Desyrel) 25 mg PO [facility] Last Admin: 12/18/17 20:35 Dose: 25 mg Subjective: Patient seen and chart reviewed. Case discussed with treatment team. On interview, patient is needy and somatically-focused (with bloating, needing ear drops, dry skin on forehead). She says she feels "better" as compared to admission "because more people care here." She states that she does participate in activities at LT facility but that staff there don't really care about her or talk to her. Patient has continued to be on CO since suicidal statement on . I discussed with her whether we could have trials off of CO and whether she could commit to seeking staff help if SI returned. She initially said yes but then changed her mind and said that no, her SI had returned moments earlier and that she needed to remain on CO in order to be safe from self-harm. Patient denies any HI or AVH. Patient denies any adverse side effects related to psychotropic medications. She agreed with slight increase in Cymbalta. Patient stated that she hadn't gone to her therapist for a month prior to admission - discussed with her increasing frequency of therapy sessions. Nursing staff report patient has not had significant behavioral difficulties though she can be quite needy. She was reportedly restless last evening and reported 10/10 pain, for which Tylenol was helpful. Patient has been adherent with medications. Patient slept 7 hours overnight. VSS. Patient is eating well. Psychotropic PRNs required in the past 24 hours: none. Start Time: 09:20 Stop Time: 09:40 Mental Status Exam Vitals: Last Vital Signs Temp 97.2 F 12/19/17 08:09 Pulse 90 12/19/17 09:38 Resp 22 12/19/17 14:58 BP 138/91 H 12/19/17 08:09 Pulse Ox 95 12/19/17 14:58 Height: 1.6 m Weight: 83.8 kg - Mental Status Exam Muscle Strength/Tone: Normal Dressing: Casual Grooming: Fair Attitude: Cooperative, Manipulative Motor Activity: Retardation Eye Contact: Good Speech: Normal Volume: Normal Rhythm: Appropriate Rhythm Sensory: Alert Orientation: Disoriented to time (month and year only), Oriented to place, Oriented to time Mood: Depressed Affect: Relaxed Rate of Thoughts: Delayed Thought Organization: Circumstantial, [place] Associations: Illogical (at times) Abstract Reasoning: Poor abstract reasoning Computation: Poor Computation (likely at baseline) Thought Content: Ruminations, Helplessness, Somatic Concerns Perception/Psychotic: Other (endorses hearing big bangs but denies hearing voices, denies VH of psychiatric nature) Language: Naming Intact Fund of Knowledge: Other (below average at baseline) Memory: Poor-recent Suicidal Ideation: Persistent, Plan (strangle self with O2 tubing) Homicidal Ideation: Denies Insight: Poor Judgement: Poor Impulse Control: Fair - Laboratory Result Diagrams: 12/17/17 07:10 12/17/17 07:10 Laboratory Results - last 24 hr 12/18/17 17:27 Glucometer 180 Assessment and Plan (1) Depressive disorder Problem details: R/O MDD with psychotic features Current visit: Yes Status: Acute (2) Personality disorder Current visit: Yes Status: Acute (3) PTSD (post-traumatic stress disorder) Current visit: Yes Status: Acute (4) Major neurocognitive disorder Problem details: Other medical conditions: Hypercalcemia Hypernatremia Thrush Constipation per [facility] (though pt reports diarrhea COPD Elevated LFTs Leukocytosis DM2 Current visit: Yes Status: Acute Increase Cymbalta to 60mg PO q AM and 30mg PO q HS. Will also schedule Tylenol at HS. Patient remains on CO. Will discuss need for weekly therapy sessions after discharge with facility. Hospital Course Summary Disclaimer: The visit summary below is not to be considered part of the above Progress Note. Hospital Course: 12/15/17 Hypercalcemia Corrected calcium is still elevated - will check PTH for further eval. Mag level checked - normal at 1.7. Hold vitamin D. Hypernatremia Encourage fluids. May need to hold Lasix if remains elevated on recheck. Will continue Lasix for now b/c of hypercalcemia. Thrush Start Nystatin Constipation per [facility] (though pt reports diarrhea) Dulcolax suppository, Senna + BID If she truly does have diarrhea with 4+ episodes per day, should check for C. diff b/c of recent abx use. COPD Recently had courses of Augmentin and Z-pack, as well as prednisone taper CXR - no pneumonia Sputum cx if possible Continue current management regimen; hold abx for now Elevated LFTs Mild. Follow. Hold statin if worsens. ? r/t psych meds Leukocytosis Mild. No other persistent SIRS criteria to suggest infection. Follow. DM2 Monitor fasting glucose & PRN - pt only checks fasting May need to adjust Lantus if fastings are low. Cont Metformin. Typically runs 170-180s Hgb A1c pending. Major depressive disorder with suicidal ideation, Paranoid schizophrenia, Dementia, Anxiety Per attending. Provide safe, supportive environment. [facility] w/u pending - B12, folate TSH normal Psych 12/16/17: Today, will order Vitamin B12 1000mcg IM x 3days, then weekly x 1 month. Will increase Risperdal to 0.25mg PO BID and discuss increasing Cymbalta vs. starting an alternate antidepressant. 12/17/17 Psych- some S/I at times. Continue current care 12/18/17 Psych- Pt slightly improved. Continue current care. 12/19/17 Psych: Increase Cymbalta to 60mg PO q AM and 30mg PO q HS. Will also schedule Tylenol at HS. Patient remains on CO. Will discuss need for weekly therapy sessions after discharge with facility.
[2017-12-19] MEDS: ACETIC ACID EACH EAR SCH ×2 (17:31→20:22)
[2017-12-19] MEDS: INSULIN GLARGINE 100unit/ml INJECTION SQ SCH (17:45)
[2017-12-19] MEDS: PRAVASTATIN 20 MG TABLET PO SCH (20:14)
[2017-12-19] MEDS: TRAZODONE 50 MG TABLET PO SCH (20:16)
[2017-12-19] MEDS: ACETAMINOPHEN 500 MG TABLET PO SCH (20:21)
[2017-12-19] MEDS ORDERED: DULOXETINE 30 MG CAPSULE PO SCH (21:00)
[2017-12-20] MEDS: NYSTATIN 500,000 units/5 ml ORAL LIQUID PO SCH ×4 (08:26→20:13)
[2017-12-20] MEDS: ACETIC ACID EACH EAR SCH ×4 (08:26→20:11)
[2017-12-20] MEDS: SENNA + DOCUSATE TABLET PO SCH ×2 (08:27→20:15)
[2017-12-20] MEDS: BACLOFEN 10 MG TABLET PO SCH ×3 (08:27→20:12)
[2017-12-20] MEDS: ASPIRIN *EC* 81 MG TABLET PO SCH (08:27)
[2017-12-20] MEDS: SOTALOL 80 MG TABLET PO SCH ×2 (08:27→20:15)
[2017-12-20] MEDS: DULOXETINE 60 MG CAPSULE PO SCH (08:27)
[2017-12-20] MEDS: BUSPIRONE 15 MG TABLET PO SCH ×3 (08:28→20:13)
[2017-12-20] MEDS: RANITIDINE 150 MG TABLET PO SCH ×2 (08:28→20:14)
[2017-12-20] MEDS: METFORMIN 500 MG TABLET PO SCH ×2 (08:28→17:32)
[2017-12-20] MEDS: IBUPROFEN 400 MG TABLET PO PRN (08:39)
[2017-12-20] MEDS: ALBUTEROL/IPRATROPIUM 2.5mg-0.5mg/3ml NEB AEROSOL SCH ×4 (08:55→19:45)
--- NOTE | 2017-12-20 10:50 | Progress Note ---
- Date 12/20/17 Subjective: Shama was waking up for the day. She states that she is still occasionally short of breath, but feels better than she did. She first arrived. She sometimes has chest pain, but none recently. She also has pain in her mid back and underneath her rib cage on both sides. She denies any abdominal pain or nausea, but states that after she eats, her abdomen tends to stick out. Her last bowel movement was yesterday. Objective Vital signs: Temperature 97.6 F 12/20/17 07:52 Pulse Rate 90 12/20/17 08:27 Respiratory Rate 18 12/20/17 08:58 Blood Pressure 155/88 H 12/20/17 07:52 Pulse Oximetry 95 12/20/17 08:58 Height/Weight/BMI: Height 1.6 m Weight 83.8 kg Body Mass Index 32.7 - Constitutional Present: no acute distress, well nourished, well developed - Routine HEENT Exam Head: Present: normocephalic Eye: Present: PERRL. Absent: conjunctival icterus, scleral injection ENT: Absent: oropharynx clear (thrush is improving) - Routine Respiratory Exam Present: decreased breath sounds, wheezes (scattered) - Routine Cardiovascular Exam Present: RRR, S1, S2 - Routine Abdominal Exam Present: soft, normoactive bowel sounds, non distended, non tender - Routine Extremities Exam Present: no edema, pulses intact - Routine Skin Exam Present: intact, dry, warm - Routine Neurological Exam Present: alert, oriented X3, vision grossly intact, hearing grossly intact, normal speech - Routine Psychiatric Exam Present: normal affect, normal thought process, cooperative Results - Labs CBC & Chem 7: 12/17/17 07:10 12/17/17 07:10 Assessment and Plan Assessment and Plan: ASSESSMENT Hypernatremia, POA Hypercalcemia, POA Leukocytosis, POA - resolved Thrush Elevated LFTs Major depressive disorder with suicidal ideation Paranoid schizophrenia Dementia Anxiety COPD, oxygen dependent, with recent exacerbation A-fib - sinus on EKG CAD, history of CT Hyperlipidemia HTN DM2, on insulin Dysphagia Obesity with BMI >30 PLAN Hypercalcemia PTH was only mildly elevated at 81.4. Resume vitamin D. Consider further outpatient workup with 24-hour urinary calcium excretion and 25-hydroxyvitamin D level. Hypernatremia - Encourage fluids. Recheck BMP on 12/23/17. Thrush - Continue Nystatin Constipation - Improving COPD - stable. Continue supportive care. Elevated LFTs - Mild. Follow. Hold statin if worsens. Recheck LFTs 12/23. Leukocytosis - resolved DM2 - Most blood sugars are <180. Hgb A1c = 8.1%. Continue Lantus and metformin. Vitamin B12 low normal at 379 - B12 replacement ordered per attending. Hyperlipidemia/hypertriglyceridemia - continue statin. Major depressive disorder with suicidal ideation, Paranoid schizophrenia, Dementia, Anxiety Per attending. Remains on constant observation. Risperdal, and Cymbalta increased. Resuscitation Status: Full Code - Physician Narrative Narrative: Date: 12/20/17 Time: 1036 Hospital Course Summary Disclaimer: The visit summary below is not to be considered part of the above Progress Note. Hospital Course: 12/15/17 Hypercalcemia Corrected calcium is still elevated - will check PTH for further eval. Mag level checked - normal at 1.7. Hold vitamin D. Hypernatremia Encourage fluids. May need to hold Lasix if remains elevated on recheck. Will continue Lasix for now b/c of hypercalcemia. Thrush Start Nystatin Constipation per [facility] (though pt reports diarrhea) Dulcolax suppository, Senna + BID If she truly does have diarrhea with 4+ episodes per day, should check for C. diff b/c of recent abx use. COPD Recently had courses of Augmentin and Z-pack, as well as prednisone taper CXR - no pneumonia Sputum cx if possible Continue current management regimen; hold abx for now Elevated LFTs Mild. Follow. Hold statin if worsens. ? r/t psych meds Leukocytosis Mild. No other persistent SIRS criteria to suggest infection. Follow. DM2 Monitor fasting glucose & PRN - pt only checks fasting May need to adjust Lantus if fastings are low. Cont Metformin. Typically runs 170-180s Hgb A1c pending. Major depressive disorder with suicidal ideation, Paranoid schizophrenia, Dementia, Anxiety Per attending. Provide safe, supportive environment. [facility] w/u pending - B12, folate TSH normal Psych 12/16/17: Today, will order Vitamin B12 1000mcg IM x 3days, then weekly x 1 month. Will increase Risperdal to 0.25mg PO BID and discuss increasing Cymbalta vs. starting an alternate antidepressant. 12/17/17 Psych- some S/I at times. Continue current care 12/18/17 Psych- Pt slightly improved. Continue current care. 12/19/17 Psych: Increase Cymbalta to 60mg PO q AM and 30mg PO q HS. Will also schedule Tylenol at HS. Patient remains on CO. Will discuss need for weekly therapy sessions after discharge with facility. 12/20/17: Hosp. Hypercalcemia PTH was only mildly elevated at 81.4. Resume vitamin D. Consider further outpatient workup with 24-hour urinary calcium excretion and 25-hydroxyvitamin D level. Hypernatremia - Encourage fluids. Recheck BMP on 12/23/17. Thrush - Continue Nystatin Constipation - Improving COPD - stable. Continue supportive care. Elevated LFTs - Mild. Follow. Hold statin if worsens. Recheck LFTs 12/23. Leukocytosis - resolved DM2 - Most blood sugars are <180. Hgb A1c = 8.1%. Continue Lantus and metformin. Vitamin B12 low normal at 379 - B12 replacement ordered per attending. Hyperlipidemia/hypertriglyceridemia - continue statin. Major depressive disorder with suicidal ideation, Paranoid schizophrenia, Dementia, Anxiety Per attending. Remains on constant observation. Risperdal, and Cymbalta increased.
--- NOTE | 2017-12-20 12:22 | Neuropsych Progress Note ---
[facility] Subjective Date: 12/20/17 - Sujective/Severity of Illness Medications: Acetaminophen (Tylenol) 1,000 mg PO TID PRN PRN Reason: Pain Last Admin: 12/19/17 13:12 Dose: 1,000 mg Acetaminophen (Tylenol) 1,000 mg PO [facility] Last Admin: 12/19/17 20:21 Dose: 1,000 mg Acetic Acid (Acetic Acid) 5 drop EACH EAR QID [facility] Stop: 12/23/17 17:00 Last Admin: 12/20/17 08:26 Dose: 5 drop Albuterol/Ipratropium (Duoneb) 3 ml AEROSOL Q4H PRN PRN Reason: Shortness of air/wheezing Albuterol/Ipratropium (Duoneb) 3 ml AEROSOL RTQID [facility] Last Admin: 12/20/17 08:55 Dose: 3 ml Aspirin (Ecotrin) 81 mg PO DAILY [facility] Last Admin: 12/20/17 08:27 Dose: 81 mg Baclofen (Lioresal) 5 mg PO TID [facility] Last Admin: 12/20/17 08:27 Dose: 5 mg Benzocaine (Cepacol Sore Throat Lozenge) 1 lozenge PO Q2H PRN PRN Reason: Sore throat Bisacodyl (Dulcolax) 10 mg RECTALLY DAILY PRN PRN Reason: Constipation Buspirone HCl (Buspar) 7.5 mg PO TID [facility] Last Admin: 12/20/17 08:28 Dose: 7.5 mg Cholecalciferol (Vit. D-3) 1,000 unit PO BID [facility] Last Admin: 12/15/17 09:25 Dose: 1,000 unit Duloxetine HCl (Cymbalta) 60 mg PO DAILY [facility] Last Admin: 12/20/17 08:27 Dose: 60 mg Duloxetine HCl (Cymbalta) 30 mg PO [facility] Last Admin: 12/19/17 20:29 Dose: 30 mg Haloperidol (Haldol) 0.5 mg PO Q6H PRN PRN Reason: Extreme agitation Haloperidol Lactate (Haldol) 0.5 mg IM Q6H PRN PRN Reason: Extreme agitation Ibuprofen (Motrin) 400 mg PO Q6H PRN PRN Reason: Pain Last Admin: 12/20/17 08:39 Dose: 400 mg Insulin Glargine (Lantus) 42 unit SQ 1800 [facility] Last Admin: 12/19/17 17:45 Dose: 42 unit Lorazepam (Ativan) 0.5 mg PO Q6H PRN PRN Reason: Extreme agitation Lorazepam (Ativan Inj) 0.5 mg IM Q6H PRN PRN Reason: Extreme agitation Magnesium Hydroxide (Mom) 30 ml PO DAILY PRN PRN Reason: Constipation Metformin HCl (Glucophage) 500 mg PO BIDWM [facility] Last Admin: 12/20/17 08:28 Dose: 500 mg Nystatin (Mycostatin) 5 ml PO QID [facility] Last Admin: 12/20/17 08:26 Dose: 5 ml Polyethylene Glycol (Miralax) 17 gm PO DAILY PRN PRN Reason: Constipation Pravastatin Sodium (Pravachol) 20 mg PO HS [facility] Last Admin: 12/19/17 20:14 Dose: 20 mg Ranitidine HCl (Zantac) 75 mg PO BID [facility] Last Admin: 12/20/17 08:28 Dose: 75 mg Risperidone (Risperdal) 0.25 mg PO BID [facility] Last Admin: 12/20/17 08:27 Dose: 0.25 mg Fluticasone/Salmeterol (Advair Diskus) 1 puff ORAL INH BID PRN PRN Reason: Shortness of air/wheezing Last Admin: 12/19/17 08:48 Dose: 1 puff Senna/Docusate Sodium (Senna Plus Tablet) 1 tab PO BID [facility] Last Admin: 12/20/17 08:27 Dose: 1 tab Sotalol HCl (Betapace) 40 mg PO BID [facility] Last Admin: 12/20/17 08:27 Dose: 40 mg Trazodone HCl (Desyrel) 25 mg PO [facility] Last Admin: 12/19/17 20:16 Dose: 25 mg Subjective: Patient seen and chart reviewed. Case discussed with treatment team. On interview, patient is needy but easily engaged. She says she has been thinking about her family who has , which is hard. She thinks more 1: 1 therapy will be helpful. She states suicidal thoughts have resolved and she would be able to ask staff for help if they were to recur. We agree to a trial off of CO today. Discussed med options. She felt restless at HS last night. Agreed that rather than increasing Cymbalta, we will start mirtazapine at HS instead. Patient denies any HI or AVH. Patient denies any adverse side effects related to psychotropic medications. Nursing staff report patient has not had significant behavioral difficulties though she can be quite needy. She was reportedly restless last evening and reported 10/10 pain in wrist and back, for which Tylenol was helpful. Patient has been adherent with medications. Patient slept 5.75 hours overnight. VSS. Patient is eating well. Psychotropic PRNs required in the past 24 hours: none. Start Time: 09:20 Stop Time: 09:40 Mental Status Exam Vitals: Last Vital Signs Temp 97.6 F 12/20/17 07:52 Pulse 90 12/20/17 08:27 Resp 18 12/20/17 08:58 BP 155/88 H 12/20/17 07:52 Pulse Ox 95 12/20/17 08:58 Height: 1.6 m Weight: 83.8 kg - Mental Status Exam Muscle Strength/Tone: Normal Dressing: Casual Grooming: Fair Attitude: Cooperative, Manipulative Motor Activity: Retardation Eye Contact: Good Speech: Normal Volume: Normal Rhythm: Appropriate Rhythm Orientation: Disoriented to time (month and year only), Oriented to place, Oriented to time Mood: Depressed Affect: Relaxed Rate of Thoughts: Delayed Thought Organization: Circumstantial, [place] Associations: Illogical (at times) Abstract Reasoning: Poor abstract reasoning Computation: Poor Computation (likely at baseline) Thought Content: Ruminations, Helplessness, Somatic Concerns Perception/Psychotic: Other (endorses hearing big bangs but denies hearing voices, denies VH of psychiatric nature) Language: Naming Intact Fund of Knowledge: Other (below average at baseline) Memory: Poor-recent Suicidal Ideation: Persistent, Plan (strangle self with O2 tubing) Homicidal Ideation: Denies Insight: Poor Judgement: Poor Impulse Control: Fair - Laboratory Result Diagrams: 12/17/17 07:10 12/17/17 07:10 Laboratory Results - last 24 hr 12/19/17 12/20/17 16:01 05:54 Glucometer 115 103 Assessment and Plan (1) Depressive disorder Problem details: R/O MDD with psychotic features Current visit: Yes Status: Acute (2) Personality disorder Current visit: Yes Status: Acute (3) PTSD (post-traumatic stress disorder) Current visit: Yes Status: Acute (4) Major neurocognitive disorder Problem details: Other medical conditions: Hypercalcemia Hypernatremia Thrush Constipation per [facility] (though pt reports diarrhea COPD Elevated LFTs Leukocytosis DM2 Current visit: Yes Status: Acute Decrease Cymbalta back to 60mg PO daily as patient felt HS dosing made her more restless. Will alternatively start mirtazapine 7.5mg PO q HS. Patient can now contract for safety off of CO. Hospital Course Summary Disclaimer: The visit summary below is not to be considered part of the above Progress Note. Hospital Course: 12/15/17 Hypercalcemia Corrected calcium is still elevated - will check PTH for further eval. Mag level checked - normal at 1.7. Hold vitamin D. Hypernatremia Encourage fluids. May need to hold Lasix if remains elevated on recheck. Will continue Lasix for now b/c of hypercalcemia. Thrush Start Nystatin Constipation per [facility] (though pt reports diarrhea) Dulcolax suppository, Senna + BID If she truly does have diarrhea with 4+ episodes per day, should check for C. diff b/c of recent abx use. COPD Recently had courses of Augmentin and Z-pack, as well as prednisone taper CXR - no pneumonia Sputum cx if possible Continue current management regimen; hold abx for now Elevated LFTs Mild. Follow. Hold statin if worsens. ? r/t psych meds Leukocytosis Mild. No other persistent SIRS criteria to suggest infection. Follow. DM2 Monitor fasting glucose & PRN - pt only checks fasting May need to adjust Lantus if fastings are low. Cont Metformin. Typically runs 170-180s Hgb A1c pending. Major depressive disorder with suicidal ideation, Paranoid schizophrenia, Dementia, Anxiety Per attending. Provide safe, supportive environment. [facility] w/u pending - B12, folate TSH normal Psych 12/16/17: Today, will order Vitamin B12 1000mcg IM x 3days, then weekly x 1 month. Will increase Risperdal to 0.25mg PO BID and discuss increasing Cymbalta vs. starting an alternate antidepressant. 12/17/17 Psych- some S/I at times. Continue current care 12/18/17 Psych- Pt slightly improved. Continue current care. 12/19/17 Psych: Increase Cymbalta to 60mg PO q AM and 30mg PO q HS. Will also schedule Tylenol at HS. Patient remains on CO. Will discuss need for weekly therapy sessions after discharge with facility. 12/20/17: Hosp. Hypercalcemia PTH was only mildly elevated at 81.4. Resume vitamin D. Consider further outpatient workup with 24-hour urinary calcium excretion and 25-hydroxyvitamin D level. Hypernatremia - Encourage fluids. Recheck BMP on 12/23/17. Thrush - Continue Nystatin Constipation - Improving COPD - stable. Continue supportive care. Elevated LFTs - Mild. Follow. Hold statin if worsens. Recheck LFTs 12/23. Leukocytosis - resolved DM2 - Most blood sugars are <180. Hgb A1c = 8.1%. Continue Lantus and metformin. Vitamin B12 low normal at 379 - B12 replacement ordered per attending. Hyperlipidemia/hypertriglyceridemia - continue statin. Major depressive disorder with suicidal ideation, Paranoid schizophrenia, Dementia, Anxiety Per attending. Remains on constant observation. Risperdal, and Cymbalta increased. 12/20/17 Psych: Decrease Cymbalta back to 60mg PO daily as patient felt HS dosing made her more restless. Will alternatively start mirtazapine 7.5mg PO q HS. Patient can now contract for safety off of CO.
[2017-12-20] MEDS: ACETAMINOPHEN 500 MG TABLET PO PRN (17:33)
[2017-12-20] MEDS: INSULIN GLARGINE 100unit/ml INJECTION SQ SCH (17:42)
[2017-12-20] MEDS: ACETAMINOPHEN 500 MG TABLET PO SCH (20:11)
[2017-12-20] MEDS: PRAVASTATIN 20 MG TABLET PO SCH (20:14)
[2017-12-20] MEDS: TRAZODONE 50 MG TABLET PO SCH (20:15)
[2017-12-20] MEDS ORDERED: MIRTAZAPINE 15 MG TABLET PO SCH (21:00)
[2017-12-21] MEDS: ALBUTEROL/IPRATROPIUM 2.5mg-0.5mg/3ml NEB AEROSOL SCH ×4 (06:59→20:05)
[2017-12-21] MEDS: NYSTATIN 500,000 units/5 ml ORAL LIQUID PO SCH ×4 (08:49→20:19)
[2017-12-21] MEDS: ASPIRIN *EC* 81 MG TABLET PO SCH (08:49)
[2017-12-21] MEDS: RANITIDINE 150 MG TABLET PO SCH ×2 (08:49→20:15)
[2017-12-21] MEDS: DULOXETINE 60 MG CAPSULE PO SCH (08:49)
[2017-12-21] MEDS: METFORMIN 500 MG TABLET PO SCH ×2 (08:49→16:56)
[2017-12-21] MEDS: BUSPIRONE 15 MG TABLET PO SCH ×3 (08:50→20:20)
[2017-12-21] MEDS: BACLOFEN 10 MG TABLET PO SCH ×3 (08:50→20:14)
[2017-12-21] MEDS: ACETIC ACID EACH EAR SCH ×4 (08:50→20:13)
[2017-12-21] MEDS: SENNA + DOCUSATE TABLET PO SCH (08:50)
[2017-12-21] MEDS: SOTALOL 80 MG TABLET PO SCH ×2 (08:52→20:17)
[2017-12-21] MEDS: ACETAMINOPHEN 500 MG TABLET PO PRN (08:55)
[2017-12-21] MEDS ORDERED: TRAZODONE 50 MG TABLET PO PRN (10:24)
--- NOTE | 2017-12-21 10:24 | Neuropsych Progress Note ---
[facility] Subjective Date: 12/21/17 - Sujective/Severity of Illness Medications: Acetaminophen (Tylenol) 1,000 mg PO TID PRN PRN Reason: Pain Last Admin: 12/21/17 08:55 Dose: 1,000 mg Acetaminophen (Tylenol) 1,000 mg PO [facility] Last Admin: 12/20/17 20:11 Dose: 1,000 mg Acetic Acid (Acetic Acid) 5 drop EACH EAR QID [facility] Stop: 12/23/17 17:00 Last Admin: 12/21/17 08:50 Dose: 5 drop Albuterol/Ipratropium (Duoneb) 3 ml AEROSOL Q4H PRN PRN Reason: Shortness of air/wheezing Albuterol/Ipratropium (Duoneb) 3 ml AEROSOL RTQID [facility] Last Admin: 12/21/17 06:59 Dose: 3 ml Aspirin (Ecotrin) 81 mg PO DAILY [facility] Last Admin: 12/21/17 08:49 Dose: 81 mg Baclofen (Lioresal) 5 mg PO TID [facility] Last Admin: 12/21/17 08:50 Dose: 5 mg Benzocaine (Cepacol Sore Throat Lozenge) 1 lozenge PO Q2H PRN PRN Reason: Sore throat Bisacodyl (Dulcolax) 10 mg RECTALLY DAILY PRN PRN Reason: Constipation Buspirone HCl (Buspar) 7.5 mg PO TID [facility] Last Admin: 12/21/17 08:50 Dose: 7.5 mg Cholecalciferol (Vit. D-3) 1,000 unit PO BID [facility] Last Admin: 12/15/17 09:25 Dose: 1,000 unit Duloxetine HCl (Cymbalta) 60 mg PO DAILY [facility] Last Admin: 12/21/17 08:49 Dose: 60 mg Haloperidol (Haldol) 0.5 mg PO Q6H PRN PRN Reason: Extreme agitation Haloperidol Lactate (Haldol) 0.5 mg IM Q6H PRN PRN Reason: Extreme agitation Ibuprofen (Motrin) 400 mg PO Q6H PRN PRN Reason: Pain Last Admin: 12/20/17 08:39 Dose: 400 mg Insulin Glargine (Lantus) 42 unit SQ 1800 [facility] Last Admin: 12/20/17 17:42 Dose: 42 unit Lorazepam (Ativan) 0.5 mg PO Q6H PRN PRN Reason: Extreme agitation Lorazepam (Ativan Inj) 0.5 mg IM Q6H PRN PRN Reason: Extreme agitation Magnesium Hydroxide (Mom) 30 ml PO DAILY PRN PRN Reason: Constipation Metformin HCl (Glucophage) 500 mg PO BIDWM [facility] Last Admin: 12/21/17 08:49 Dose: 500 mg Mirtazapine (Remeron) 7.5 mg PO [facility] Last Admin: 12/20/17 20:14 Dose: 7.5 mg Nystatin (Mycostatin) 5 ml PO QID [facility] Last Admin: 12/21/17 08:49 Dose: 5 ml Polyethylene Glycol (Miralax) 17 gm PO DAILY PRN PRN Reason: Constipation Pravastatin Sodium (Pravachol) 20 mg PO [facility] Last Admin: 12/20/17 20:14 Dose: 20 mg Ranitidine HCl (Zantac) 75 mg PO BID [facility] Last Admin: 12/21/17 08:49 Dose: 75 mg Risperidone (Risperdal) 0.25 mg PO BID [facility] Last Admin: 12/21/17 08:50 Dose: 0.25 mg Fluticasone/Salmeterol (Advair Diskus) 1 puff ORAL INH BID PRN PRN Reason: Shortness of air/wheezing Last Admin: 12/19/17 08:48 Dose: 1 puff Senna/Docusate Sodium (Senna Plus Tablet) 1 tab PO BID [facility] Last Admin: 12/21/17 08:50 Dose: 1 tab Sotalol HCl (Betapace) 40 mg PO BID [facility] Last Admin: 12/21/17 08:52 Dose: 40 mg Trazodone HCl (Desyrel) 25 mg PO [facility] Last Admin: 12/20/17 20:15 Dose: 25 mg Subjective: Patient seen and chart reviewed. Case discussed with treatment team. On interview, patient is pleasant and easily engaged. She continues to be ruminative and hypersensitive to perceived rejections by various people. She reports her mood has improved and she hasn't had any suicidal thoughts in the past day or so. She feels she has done well off CO but worries that staff aren' t checking on her every 15 minutes overnight. Reassurance provided. Patient denies any HI or VH. She says she has AH of loud bangs at times and this happened 3x this morning. Patient denies any adverse side effects related to psychotropic medications. Nursing staff report patient has not had significant behavioral difficulties though she can be quite needy. Patient has been adherent with medications. Patient slept 9.5 hours overnight. VSS. Patient is eating well. Psychotropic PRNs required in the past 24 hours: none. Start Time: 09:20 Stop Time: 09:40 Mental Status Exam Vitals: Last Vital Signs Temp 97.8 F 12/21/17 08:00 Pulse 94 12/21/17 08:52 Resp 22 12/21/17 08:00 BP 158/95 H 12/21/17 08:00 Pulse Ox 94 12/21/17 08:00 Height: 1.6 m Weight: 83.8 kg - Mental Status Exam Muscle Strength/Tone: Normal Dressing: Casual Grooming: Fair Attitude: Cooperative, Manipulative Motor Activity: Retardation Eye Contact: Good Speech: Normal Volume: Normal Rhythm: Appropriate Rhythm Orientation: Disoriented to time (month and year only), Oriented to place, Oriented to time Mood: Neutral, Depressed Affect: Relaxed Rate of Thoughts: Delayed Thought Organization: Circumstantial, [place] Associations: Illogical (at times) Abstract Reasoning: Poor abstract reasoning Computation: Poor Computation (likely at baseline) Thought Content: Ruminations, Somatic Concerns Perception/Psychotic: Other (endorses hearing big bangs but denies hearing voices, denies VH of psychiatric nature) Language: Naming Intact Fund of Knowledge: Other (below average at baseline) Memory: Poor-recent Suicidal Ideation: Intermittent Homicidal Ideation: Denies Insight: Limited Judgement: Limited Impulse Control: Fair - Laboratory Result Diagrams: 12/17/17 07:10 12/17/17 07:10 Laboratory Results - last 24 hr 12/21/17 06:10 Glucometer 107 Assessment and Plan (1) Depressive disorder Problem details: R/O MDD with psychotic features Current visit: Yes Status: Acute (2) Personality disorder Current visit: Yes Status: Acute (3) PTSD (post-traumatic stress disorder) Current visit: Yes Status: Acute (4) Major neurocognitive disorder Problem details: Other medical conditions: Hypercalcemia Hypernatremia Thrush Constipation per KUB (though pt reports diarrhea COPD Elevated LFTs Leukocytosis DM2 Current visit: Yes Status: Acute Will increase mirtazapine to 15mg PO q HS. Will change trazodone to PRN for now though plan to discontinue it prior to discharge. Hospital Course Summary Disclaimer: The visit summary below is not to be considered part of the above Progress Note. Hospital Course: 12/15/17 Hypercalcemia Corrected calcium is still elevated - will check PTH for further eval. Mag level checked - normal at 1.7. Hold vitamin D. Hypernatremia Encourage fluids. May need to hold Lasix if remains elevated on recheck. Will continue Lasix for now b/c of hypercalcemia. Thrush Start Nystatin Constipation per KUB (though pt reports diarrhea) Dulcolax suppository, Senna + BID If she truly does have diarrhea with 4+ episodes per day, should check for C. diff b/c of recent abx use. COPD Recently had courses of Augmentin and Z-pack, as well as prednisone taper CXR - no pneumonia Sputum cx if possible Continue current management regimen; hold abx for now Elevated LFTs Mild. Follow. Hold statin if worsens. ? r/t psych meds Leukocytosis Mild. No other persistent SIRS criteria to suggest infection. Follow. DM2 Monitor fasting glucose & PRN - pt only checks fasting May need to adjust Lantus if fastings are low. Cont Metformin. Typically runs 170-180s Hgb A1c pending. Major depressive disorder with suicidal ideation, Paranoid schizophrenia, Dementia, Anxiety Per attending. Provide safe, supportive environment. [facility] w/u pending - B12, folate TSH normal Psych 12/16/17: Today, will order Vitamin B12 1000mcg IM x 3days, then weekly x 1 month. Will increase Risperdal to 0.25mg PO BID and discuss increasing Cymbalta vs. starting an alternate antidepressant. 12/17/17 Psych- some S/I at times. Continue current care 12/18/17 Psych- Pt slightly improved. Continue current care. 12/19/17 Psych: Increase Cymbalta to 60mg PO q AM and 30mg PO q HS. Will also schedule Tylenol at HS. Patient remains on CO. Will discuss need for weekly therapy sessions after discharge with facility. 12/20/17: Hosp. Hypercalcemia PTH was only mildly elevated at 81.4. Resume vitamin D. Consider further outpatient workup with 24-hour urinary calcium excretion and 25-hydroxyvitamin D level. Hypernatremia - Encourage fluids. Recheck BMP on 12/23/17. Thrush - Continue Nystatin Constipation - Improving COPD - stable. Continue supportive care. Elevated LFTs - Mild. Follow. Hold statin if worsens. Recheck LFTs 12/23. Leukocytosis - resolved DM2 - Most blood sugars are <180. Hgb A1c = 8.1%. Continue Lantus and metformin. Vitamin B12 low normal at 379 - B12 replacement ordered per attending. Hyperlipidemia/hypertriglyceridemia - continue statin. Major depressive disorder with suicidal ideation, Paranoid schizophrenia, Dementia, Anxiety Per attending. Remains on constant observation. Risperdal, and Cymbalta increased. 12/20/17 Psych: Decrease Cymbalta back to 60mg PO daily as patient felt HS dosing made her more restless. Will alternatively start mirtazapine 7.5mg PO q HS. Patient can now contract for safety off of [place]. 12/21/17 Psych: Will increase mirtazapine to 15mg PO q HS. Will change trazodone to PRN for now though plan to discontinue it prior to discharge.
[2017-12-21] MEDS ORDERED: SENNA + DOCUSATE TABLET PO PRN (14:20)
[2017-12-21] MEDS: INSULIN GLARGINE 100unit/ml INJECTION SQ SCH (17:45)
[2017-12-21] MEDS: IBUPROFEN 400 MG TABLET PO PRN (18:45)
[2017-12-21] MEDS: ACETAMINOPHEN 500 MG TABLET PO SCH (20:13)
[2017-12-21] MEDS: PRAVASTATIN 20 MG TABLET PO SCH (20:16)
[2017-12-21] MEDS: MIRTAZAPINE 15 MG TABLET PO SCH (20:18)
[2017-12-22] MEDS: ALBUTEROL/IPRATROPIUM 2.5mg-0.5mg/3ml NEB AEROSOL SCH ×4 (07:12→20:47)
[2017-12-22] MEDS: METFORMIN 500 MG TABLET PO SCH ×2 (08:18→17:44)
[2017-12-22] MEDS: BUSPIRONE 15 MG TABLET PO SCH ×3 (08:18→20:04)
[2017-12-22] MEDS: DULOXETINE 60 MG CAPSULE PO SCH (08:18)
[2017-12-22] MEDS: ASPIRIN *EC* 81 MG TABLET PO SCH (08:18)
[2017-12-22] MEDS: ACETIC ACID EACH EAR SCH ×4 (08:18→20:01)
[2017-12-22] MEDS: BACLOFEN 10 MG TABLET PO SCH ×3 (08:18→20:03)
[2017-12-22] MEDS: NYSTATIN 500,000 units/5 ml ORAL LIQUID PO SCH ×4 (08:19→20:06)
[2017-12-22] MEDS: RANITIDINE 150 MG TABLET PO SCH ×2 (08:19→20:07)
[2017-12-22] MEDS: LISINOPRIL 2.5 MG TABLET PO SCH (08:19)
[2017-12-22] MEDS: SOTALOL 80 MG TABLET PO SCH ×2 (08:20→20:08)
[2017-12-22] MEDS: ACETAMINOPHEN 500 MG TABLET PO PRN (08:26)
--- NOTE | 2017-12-22 12:11 | Neuropsych Progress Note ---
[facility] Subjective Date: 12/22/17 - Sujective/Severity of Illness Medications: Acetaminophen (Tylenol) 1,000 mg PO TID PRN PRN Reason: Pain Last Admin: 12/22/17 08:26 Dose: 1,000 mg Acetaminophen (Tylenol) 1,000 mg PO HS [facility] Last Admin: 12/21/17 20:13 Dose: 1,000 mg Acetic Acid (Acetic Acid) 5 drop EACH EAR QID [facility] Stop: 12/23/17 17:00 Last Admin: 12/22/17 08:18 Dose: 5 drop Albuterol/Ipratropium (Duoneb) 3 ml AEROSOL Q4H PRN PRN Reason: Shortness of air/wheezing Albuterol/Ipratropium (Duoneb) 3 ml AEROSOL RTQID [facility] Last Admin: 12/22/17 11:36 Dose: 3 ml Aspirin (Ecotrin) 81 mg PO DAILY [facility] Last Admin: 12/22/17 08:18 Dose: 81 mg Baclofen (Lioresal) 5 mg PO TID [facility] Last Admin: 12/22/17 08:18 Dose: 5 mg Benzocaine (Cepacol Sore Throat Lozenge) 1 lozenge PO Q2H PRN PRN Reason: Sore throat Bisacodyl (Dulcolax) 10 mg RECTALLY DAILY PRN PRN Reason: Constipation Buspirone HCl (Buspar) 7.5 mg PO TID [facility] Last Admin: 12/22/17 08:18 Dose: 7.5 mg Cholecalciferol (Vit. D-3) 1,000 unit PO BID [facility] Last Admin: 12/15/17 09:25 Dose: 1,000 unit Duloxetine HCl (Cymbalta) 60 mg PO DAILY [facility] Last Admin: 12/22/17 08:18 Dose: 60 mg Haloperidol (Haldol) 0.5 mg PO Q6H PRN PRN Reason: Extreme agitation Haloperidol Lactate (Haldol) 0.5 mg IM Q6H PRN PRN Reason: Extreme agitation Ibuprofen (Motrin) 400 mg PO Q6H PRN PRN Reason: Pain Last Admin: 12/21/17 18:45 Dose: 400 mg Insulin Glargine (Lantus) 42 unit SQ 1800 [facility] Last Admin: 12/21/17 17:45 Dose: 42 unit Lisinopril (Prinivil) 2.5 mg PO DAILY [facility] Last Admin: 12/22/17 08:19 Dose: 2.5 mg Lorazepam (Ativan) 0.5 mg PO Q6H PRN PRN Reason: Extreme agitation Lorazepam (Ativan Inj) 0.5 mg IM Q6H PRN PRN Reason: Extreme agitation Magnesium Hydroxide (Mom) 30 ml PO DAILY PRN PRN Reason: Constipation Metformin HCl (Glucophage) 500 mg PO BIDWM [facility] Last Admin: 12/22/17 08:18 Dose: 500 mg Mirtazapine (Remeron) 15 mg PO HS [facility] Last Admin: 12/21/17 20:18 Dose: 15 mg Nystatin (Mycostatin) 5 ml PO QID [facility] Last Admin: 12/22/17 08:19 Dose: 5 ml Polyethylene Glycol (Miralax) 17 gm PO DAILY PRN PRN Reason: Constipation Pravastatin Sodium (Pravachol) 20 mg PO [facility] Last Admin: 12/21/17 20:16 Dose: 20 mg Ranitidine HCl (Zantac) 75 mg PO BID [facility] Last Admin: 12/22/17 08:19 Dose: 75 mg Risperidone (Risperdal) 0.25 mg PO BID [facility] Last Admin: 12/22/17 08:19 Dose: 0.25 mg Fluticasone/Salmeterol (Advair Diskus) 1 puff ORAL INH BID PRN PRN Reason: Shortness of air/wheezing Last Admin: 12/19/17 08:48 Dose: 1 puff Senna/Docusate Sodium (Senna Plus Tablet) 1 tab PO BID PRN PRN Reason: Constipation Sotalol HCl (Betapace) 40 mg PO BID [facility] Last Admin: 12/22/17 08:20 Dose: 40 mg Subjective: Patient seen and chart reviewed. Case discussed with treatment team. On interview, patient is pleasant and easily engaged. She continues to be ruminative and hypersensitive to perceived rejections by various people. She reports her mood has improved and she hasn't had any suicidal thoughts in the past day or so. She states that she wants to return to [facility] though she worries she "won't have anyone on her side there." She does not want to go to alternate placement either. She identified Agata as a person she can share with if [facility] returns -- will discuss with facility. Patient denies any HI or VH. She says she has AH of loud bangs at times. Patient denies any adverse side effects related to psychotropic medications. Nursing staff report patient has not had significant behavioral difficulties though she can be needy. Patient has been adherent with medications. Patient slept 9 hours overnight. VSS. Patient is eating well. Psychotropic PRNs required in the past 24 hours: none. Start Time: 08:00 Stop Time: 08:20 Mental Status Exam Vitals: Last Vital Signs Temp 97.4 F 12/22/17 08:00 Pulse 87 12/22/17 11:03 Resp 16 12/22/17 11:36 BP 139/79 12/22/17 11:03 Pulse Ox 97 12/22/17 11:36 Height: 1.6 m Weight: 83.8 kg - Mental Status Exam Muscle Strength/Tone: Normal Dressing: Casual Grooming: Fair Attitude: Cooperative, Manipulative Motor Activity: Retardation Eye Contact: Good Speech: Normal Volume: Normal Rhythm: Appropriate Rhythm Orientation: Disoriented to time (month and year only), Oriented to place, Oriented to time Mood: Neutral Affect: Relaxed Rate of Thoughts: Delayed Thought Organization: Circumstantial, [place] Associations: Intact Abstract Reasoning: Poor abstract reasoning Computation: Poor Computation (likely at baseline) Thought Content: Ruminations, Somatic Concerns Perception/Psychotic: Other (endorses hearing big bangs but denies hearing voices, denies VH of psychiatric nature) Language: Naming Intact Fund of Knowledge: Other (below average at baseline) Memory: Poor-recent Suicidal Ideation: Denies Homicidal Ideation: Denies Insight: Limited Judgement: Limited Impulse Control: Fair - Laboratory Result Diagrams: 12/22/17 07:03 12/22/17 07:03 Laboratory Results - last 24 hr 12/22/17 12/22/17 12/22/17 06:14 07:03 07:03 WBC 6.5 RBC 4.68 Hgb 13.3 Hct 42.6 MCV 91.0 MCH 28.4 MCHC 31.2 RDW Std Deviation 46.9 Plt Count 217 MPV 11.0 Immature Gran % (Auto) 0.8 H Neut % (Auto) 57.0 Lymph % (Auto) 28.5 [place] % (Auto) 9.6 H Eos % (Auto) 3.5 Baso % (Auto) 0.6 Neut # (Auto) 3.7 Lymph # (Auto) 1.9 [place] # (Auto) 0.6 Eos # (Auto) 0.2 Baso # (Auto) 0.0 Abs Immat Gran (auto) 0.05 H Turbidity < 20 Sodium 147 H Potassium 4.5 Chloride 105 Carbon Dioxide 30 Anion Gap 12 BUN 14.0 Creatinine 0.7 GFR Calculation 82 BUN/Creatinine Ratio 20 Glucose 114 H Glucometer 113 Calculated Osmolality 284 H Calcium 10.4 H Icterus Index < 2 Specimen Hemolysis < 15 Assessment and Plan (1) Depressive disorder Problem details: R/O MDD with psychotic features Current visit: Yes Status: Acute (2) Personality disorder Current visit: Yes Status: Acute (3) PTSD (post-traumatic stress disorder) Current visit: Yes Status: Acute (4) Major neurocognitive disorder Problem details: Other medical conditions: Hypercalcemia Hypernatremia Thrush Constipation per [facility] (though pt reports diarrhea COPD Elevated LFTs Leukocytosis DM2 Current visit: Yes Status: Acute Continue current care. Will need weekly Vitamin B12 1000mcg weekly x 1 month then monthly thereafter. Will discuss need for frequent therapy after discharge. plan to discharge back to [facility] on 12/23. Hospital Course Summary Disclaimer: The visit summary below is not to be considered part of the above Progress Note. Hospital Course: 12/15/17 Hypercalcemia Corrected calcium is still elevated - will check PTH for further eval. Mag level checked - normal at 1.7. Hold vitamin D. Hypernatremia Encourage fluids. May need to hold Lasix if remains elevated on recheck. Will continue Lasix for now b/c of hypercalcemia. Thrush Start Nystatin Constipation per [facility] (though pt reports diarrhea) Dulcolax suppository, Senna + BID If she truly does have diarrhea with 4+ episodes per day, should check for C. diff b/c of recent abx use. COPD Recently had courses of Augmentin and Z-pack, as well as prednisone taper CXR - no pneumonia Sputum cx if possible Continue current management regimen; hold abx for now Elevated LFTs Mild. Follow. Hold statin if worsens. ? r/t psych meds Leukocytosis Mild. No other persistent SIRS criteria to suggest infection. Follow. DM2 Monitor fasting glucose & PRN - pt only checks fasting May need to adjust Lantus if fastings are low. Cont Metformin. Typically runs 170-180s Hgb A1c pending. Major depressive disorder with suicidal ideation, Paranoid schizophrenia, Dementia, Anxiety Per attending. Provide safe, supportive environment. [facility] w/u pending - B12, folate TSH normal Psych 12/16/17: Today, will order Vitamin B12 1000mcg IM x 3days, then weekly x 1 month. Will increase Risperdal to 0.25mg PO BID and discuss increasing Cymbalta vs. starting an alternate antidepressant. 12/17/17 Psych- some S/I at times. Continue current care 12/18/17 Psych- Pt slightly improved. Continue current care. 12/19/17 Psych: Increase Cymbalta to 60mg PO q AM and 30mg PO q HS. Will also schedule Tylenol at HS. Patient remains on CO. Will discuss need for weekly therapy sessions after discharge with facility. 12/20/17: Hosp. Hypercalcemia PTH was only mildly elevated at 81.4. Resume vitamin D. Consider further outpatient workup with 24-hour urinary calcium excretion and 25-hydroxyvitamin D level. Hypernatremia - Encourage fluids. Recheck BMP on 12/23/17. Thrush - Continue Nystatin Constipation - Improving COPD - stable. Continue supportive care. Elevated LFTs - Mild. Follow. Hold statin if worsens. Recheck LFTs 12/23. Leukocytosis - resolved DM2 - Most blood sugars are <180. Hgb A1c = 8.1%. Continue Lantus and metformin. Vitamin B12 low normal at 379 - B12 replacement ordered per attending. Hyperlipidemia/hypertriglyceridemia - continue statin. Major depressive disorder with suicidal ideation, Paranoid schizophrenia, Dementia, Anxiety Per attending. Remains on constant observation. Risperdal, and Cymbalta increased. 12/20/17 Psych: Decrease Cymbalta back to 60mg PO daily as patient felt HS dosing made her more restless. Will alternatively start mirtazapine 7.5mg PO q HS. Patient can now contract for safety off of [place]. 12/21/17 Psych: Will increase mirtazapine to 15mg PO q HS. Will change trazodone to PRN for now though plan to discontinue it prior to discharge. 12/22/17 Psych: Continue current care. Will need weekly Vitamin B12 1000mcg weekly x 1 month then monthly thereafter. Will discuss need for frequent therapy after discharge. plan to discharge back to [facility] on 12/23.
--- NOTE | 2017-12-22 12:54 | Extended Care Facility Orders ---
Admission Orders Admit to:: [facility] Allergies/Adverse Reactions: Allergies codeine Allergy (Intermediate, Verified 12/14/17 15:16) Admitting Diagnosis: Dementia with Behavioral Disturbances Admitting Physician: Mary Rosen MD Attending Physician: Mary Rosen MD Code Status: Full Code Anticiapted Length of Stay: greater than 30 days Rehab Potential: fair Rehab Prognosis: fair Diet: 12/15/17 Breakfast Consistent Carbohydrate Diet [DIET] Calorie Level: 1999 May use Facility Protocol or Standing Orders: Yes May have flu vaccine: Yes Evaluations/Treatment: Psychiatric Group Home Certification: I certify that SNF services are required to be given on an Inpatient basis because of the patients need for [facility] care on a continuing basis for the condition(s) for which he/she received inpatient hospital services prior to his/her transfer to the SNF. SNF inpatient care is necessary for the following reasons Indication for Group Home: Not Applicable - Additional Information In Event of Arrest: Start CPR,call 911,send patient to the ER Resident is Aware of Diagnosis: Yes Referrals: Fabiana Guevara [Other] (EMILE Foss will see patient on rounds at the facility. ) Kulwinder Piper MD [Physician] - Kobe Camacho MD [Primary Care Provider] -
[2017-12-22] MEDS: INSULIN GLARGINE 100unit/ml INJECTION SQ SCH (17:54)
[2017-12-22] MEDS: IBUPROFEN 400 MG TABLET PO PRN (18:04)
[2017-12-22] MEDS: MIRTAZAPINE 15 MG TABLET PO SCH (20:05)
[2017-12-22] MEDS: PRAVASTATIN 20 MG TABLET PO SCH (20:07)
[2017-12-22] MEDS: ACETAMINOPHEN 500 MG TABLET PO SCH (20:15)
[2017-12-23] MEDS: ALBUTEROL/IPRATROPIUM 2.5mg-0.5mg/3ml NEB AEROSOL SCH (06:45)
[2017-12-23 07:54] VITALS: RESP 16
[2017-12-23 08:10] VITALS: BP 148/99; PULSE 93; TEMP 97.4; O2SAT 90
[2017-12-23] MEDS: METFORMIN 500 MG TABLET PO SCH (08:14)
[2017-12-23] MEDS: ACETIC ACID EACH EAR SCH (08:14)
[2017-12-23] MEDS: ASPIRIN *EC* 81 MG TABLET PO SCH (08:15)
[2017-12-23] MEDS: BACLOFEN 10 MG TABLET PO SCH (08:15)
[2017-12-23] MEDS: LISINOPRIL 2.5 MG TABLET PO SCH (08:16)
[2017-12-23] MEDS: DULOXETINE 60 MG CAPSULE PO SCH (08:16)
[2017-12-23] MEDS: NYSTATIN 500,000 units/5 ml ORAL LIQUID PO SCH (08:16)
[2017-12-23] MEDS: BUSPIRONE 15 MG TABLET PO SCH (08:16)
[2017-12-23] MEDS: SOTALOL 80 MG TABLET PO SCH (08:17)
[2017-12-23] MEDS: RANITIDINE 150 MG TABLET PO SCH (08:18)
[2017-12-23] MEDS: ACETAMINOPHEN 500 MG TABLET PO SCH (09:13)
== END 2017-12-23 09:32 | DRG 881 ==
LOC: ED 15:07 → GEN 17:37
PROVIDERS: ADMIT Psychiatry & Neurology Psychiatry; ATTEND Psychiatry & Neurology Psychiatry